=== PATIENT | female | born 1990 | race Caucasian/White ===

== ENCOUNTER 2023-07-10 22:14 | Emergency (ER) | payer OTHER, SELFPAY ==
[2023-07-10 22:23] VITALS: BP 153/83; PULSE 109; RESP 18; TEMP 36.6; O2SAT 100; BMI 33.7
--- NOTE | 2023-07-10 22:36 | XR_ITS ---
The [address] [address] Patient Name: GEO GARCIA MRN: [id number] date: 1990 Sex: F Assigned Patient Location: ER Current Patient Location: ED.MAIN Accession/Order Number: [id number] Exam Date: 07/10/2023 22:48 Report Date: 07/10/2023 23:41 At the request of: DENISE PINEDA Procedure: XR foot LT min 3V EXAM: XR foot LT min 3V HISTORY: foot pain COMPARISON: None. TECHNIQUE: 3 views of the left foot were obtained. FINDINGS: There is a nondisplaced transverse fracture through the proximal left fifth metatarsal diametaphysis. The joint spaces are preserved. There is no significant left ankle joint effusion. XR/XR foot LT min 3V IMPRESSION: 1. Proximal left fifth metatarsal fracture as described. Electronically authenticated by: Lui ESPINOSA Date: 07/10/2023 23:41
--- NOTE | 2023-07-10 22:36 | ED_ITS ---
HPI - Extremity Injury (Lower) General Chief Complaint: Extremity Injury, Lower Stated Complaint: LE INJURY Time Seen by Provider: 07/10/23 22:24 Source: patient Mode of arrival: walk-in Limitations: no limitations History of Present Illness HPI Narrative: Patient states that last night, while in bed, she went to move and felt a sharp pain and pop along the 5th metatarsal of the left foot. She got up today and h ad increased pain. Said that she cannot bear weight on the left foot. Took 600mg Motrin today Related Data Previous Rx's Medication Instructions Recorded oxycodone-acetaminophen 5 mg-325 1 tab PO Q6H PRN pain 4 days #14 07/10/23 mg tablet (Percocet) tabs Allergies Allergy/AdvReac Type Severity Reaction Status Date / Time No Known Drug Allergies Allergy Verified 07/10/23 22:28 Exam Narrative Exam Narrative: Nurses notes and vital signs reviewed and patient is not hypoxic. Afebrile General: Well-appearing and in no apparent distress. Skin: Warm, dry, no pallor noted. No rash. Cardiovascular: Normal peripheral perfusion. Respiratory: No accessory muscle use or respiratory distress. Musculoskeletal: Left lower extremity - toes of the left t foot, right ankle, right knee with normal ROM, no calf or popliteal tenderness, no lower extremity edema/swelling. Focal tenderness along the left fifth metatarsal without ecchymosis or swelling Neurological: A&O x4. No cranial nerve dysfunction observed. No truncal ataxia. Moves all extremities. Sensation intact. Psychiatric: Cooperative and interactive. Normal mood and affect. Constitutional Vital Signs, click to edit/add: Last Vital Signs Temp 97.8 F 07/10/23 22:23 Pulse 109 H 07/10/23 22:23 Resp 18 07/10/23 22:23 BP 153/83 H 07/10/23 22:23 Pulse Ox 100 07/10/23 22:23 O2 Del Method Room Air 07/10/23 22:23 Course Vital Signs Vital signs: Vital Signs Temperature 97.8 F 07/10/23 22:23 Pulse Rate 109 H 07/10/23 22:23 Respiratory Rate 18 07/10/23 22:23 Blood Pressure 153/83 H 07/10/23 22:23 Pulse Oximetry 100 07/10/23 22:23 Oxygen Delivery Method Room Air 07/10/23 22:23 Temperature 97.8 F 07/10/23 22:23 Pulse Rate 109 H 07/10/23 22:23 Respiratory Rate 18 07/10/23 22:23 Blood Pressure 153/83 H 07/10/23 22:23 Pulse Oximetry 100 07/10/23 22:23 Oxygen Delivery Method Room Air 07/10/23 22:23 MDM - Extremity Injury (Lower) MDM Narrative Medical decision making narrative: Patient sent for x-rays of the left foot. XRay reveals distal shaft fracture of the 5th metatarsal. No other fractures identified. Patient informed of result and ED nurse applied a CAM boot to the left foot.. Patient given crutches for support and instructed on use. She was referred to Dr Topete for follow up. She was given Percocet for pain in the ED and prescribed the same for home use. OARRS reviewed. Discharge Plan Discharge Stand Alone Forms: Portal Instructions Chief Complaint: Extremity Injury, Lower Clinical Impression: Closed fracture of base of fifth metatarsal bone of left foot Patient Disposition: Home, Self-Care Time of Disposition Decision: 23:02 Prescriptions / Home Meds: New oxycodone-acetaminophen [Percocet] 5-325 mg tablet 1 tab PO Q6H PRN (Reason: pain) 4 Days Qty: 14 0RF Rx Instructions: ICD 10 = S 99 Instructions: Foot Fracture in Adults (ED) Referrals: Jeffery Topete DPM [Physician] - As soon as possible
[2023-07-10] MEDS: OXYCODONE HCL/ACETAMINOPHEN 5MG/325MG 1 TAB PO (23:23)
[2023-07-10 23:42] VITALS: BP 140/80; PULSE 88; RESP 16; O2SAT 98
== END 2023-07-10 23:42 | disposition home or self-care (01) ==
PROVIDERS: Emergency Provider Emergency Medicine
DX: S92.352A Displaced fracture of fifth metatarsal bone, left foot, initial encounter for closed fracture (principal); X50.9XXA Other and unspecified overexertion or strenuous movements or postures, initial encounter
CPT/HCPCS: 73630; 99283

== ENCOUNTER 2023-08-09 14:57 | Outpatient (OUT) | payer OTHER, SELFPAY ==
--- NOTE | 2023-08-09 | XR_ITS ---
The [address] [address] Patient Name: GEO GARCIA MRN: [id number] date: 1990 Sex: F Assigned Patient Location: Current Patient Location: [facility] Accession/Order Number: [id number] Exam Date: 08/09/2023 15:00 Report Date: 08/10/2023 08:50 At the request of: CRISS URIBE Procedure: XR foot LT min 3V PROCEDURE: XR foot LT min 3V COMPARISON: 07/10/2023 HISTORY: LEFT FOOT PAIN FINDINGS: BONES:Stable transverse extra articular fracture base of fifth metatarsal with interval increase in both lytic and sclerotic change. Incomplete bony bridging. No new fracture or dislocation. SOFT TISSUES:Negative. No visible soft tissue swelling. EFFUSION:None visible. OTHER: Negative. XR/XR foot LT min 3V IMPRESSION: Stable healing extra-articular fracture base of the fifth metatarsal Electronically authenticated by: MING SOUSA Date: 08/10/2023 08:50
== END 2023-08-09 14:58 | disposition home or self-care (01) ==
LOC: EC 14:57
PROVIDERS: Visit Provider Podiatrist Foot & Ankle Surgery
DX: M79.672 Pain in left foot (principal)
CPT/HCPCS: 73630

== ENCOUNTER 2023-08-09 15:56 | Outpatient (OUT) | payer OTHER, SELFPAY ==
--- NOTE | 2023-08-09 16:03 | US_ITS ---
The [address] [address] Patient Name: GEO GARCIA MRN: [id number] date: 1990 Sex: F Assigned Patient Location: [place] Current Patient Location: Accession/Order Number: [id number] Exam Date: 08/09/2023 16:06 Report Date: 08/09/2023 21:12 At the request of: CRISS URIBE Procedure: US venous doppler LE LT EXAM: ULTRASOUND OF THE LOWER EXTREMITY VENOUS LEFT HISTORY: Extremity edema and pain. Leg swelling R22.42 COMPARISON: None. TECHNIQUE: Multiple sonographic images are performed of the extremity venous system with both color Doppler and grayscale Doppler. Doppler spectral analysis and color flow were performed of the extremity. FINDINGS: Positive DVT in the posterior tibial vein and peroneal veins on the left. No popliteal fluid collection. US/US venous doppler LE LT IMPRESSION: Positive for DVT left lower extremity. Critical results were NOTIFIED by TELEPHONE ot doctor electronic data interchange specialist and patient was sent to the ER 08/09/2023 9:04 PM EDT. Electronically authenticated by: VAUGHN GILLILAND Date: 08/09/2023 21:12
== END 2023-08-09 15:57 | disposition home or self-care (01) ==
LOC: US 15:58
PROVIDERS: Visit Provider Podiatrist Foot & Ankle Surgery
DX: R22.42 Localized swelling, mass and lump, left lower limb (principal); I82.442 Acute embolism and thrombosis of left tibial vein; I82.452 Acute embolism and thrombosis of left peroneal vein
CPT/HCPCS: 93971

== ENCOUNTER 2023-08-09 17:01 | Emergency (ER) | payer OTHER, SELFPAY ==
[2023-08-09 17:06] VITALS: BP 155/92; PULSE 93; TEMP 36.7; O2SAT 97; BMI 33.7
--- OUTSIDE RECORDS SUMMARY | 2023-08-09 17:06 | XMS_ITS | CCD ---
Author Organization [facility] Care Team Providers Care Assembly Line Upholsterer Name Role Phone JULIANAK, GOVIND Unavailable Unavailable KARASIK, GOVIND Unavailable Unavailable REQUEST, NONE LISTED Unavailable Unavailable KARASIK, GOVIND Unavailable Unavailable RODY, LINH Unavailable Unavailable ZIEBERSAMI R Unavailable Unavailable KARASIK, GOVIND Unavailable Unavailable KARASIK, GOVIND Unavailable Unavailable KARASIK, GOVIND Unavailable Unavailable KARASIK, GOVIND Unavailable Unavailable KARASIK, GOVIND Unavailable Unavailable KARASIK, GOVIND Unavailable Unavailable KARASIK, GOVIND Unavailable Unavailable KARASIK, GOVIND Unavailable Unavailable KARASIK, GOVIND Unavailable Unavailable MARTE, THONG Unavailable Unavailable RODY, LINH Unavailable Unavailable MARTE, THONG Unavailable Unavailable KARASIK, GOVIND Unavailable Unavailable KARASIK, GOVIND Unavailable Unavailable KARASIK, GOVIND Unavailable Unavailable KARASIK, GOVIND Unavailable Unavailable KARASIK, GOVIND Unavailable Unavailable REQUEST, NONE LISTED Unavailable Unavailable KARASIK, GOVIND Unavailable Unavailable KARASIK, GOVIND Unavailable Unavailable KARASIK, GOVIND Unavailable Unavailable REQUEST, NONE LISTED Unavailable Unavailable KARASIK, GOVIND Unavailable Unavailable MAGDIEL LOMAX S Unavailable Unavailable NITZMING CONNOR Unavailable Unavailable GENIA LUCAS Unavailable Unavailable SEAMON, MAKENNA A Unavailable Unavailable REQUEST, NONE LISTED Unavailable Unavailable HAY, DENISE Unavailable Unavailable HAY, DENISE Unavailable Unavailable WEST, MING Ness Unavailable Unavailable GRECHNY, YOLANDE Unavailable Unavailable KARASIK, GOVIND Unavailable Unavailable KARASIK, GOVIND Unavailable Unavailable KARASIK, GOVIND Unavailable Unavailable Problems Active Problems Problem Classification Problem Date Documented Da te Episodic/Chronic Other complications of ; puerperium affecting management of mother (1 source) Anemia complicating childbirth; Translations: [ANEMIA COMPLICATING CHILDBIRTH] Onset: 01-26-2017 Chronic Other nervous system disorders (3 sources) Paresthesia of skin; Translations: [PARESTHESIA OF SKIN] Onset: 08-20-2017 Episodic Spondylosis; intervertebral disc disorders; other back problems (1 source) Cervicalgia; Translations: [CERVICALGIA] Onset: 08-23-2017 Episodic Substance-related disorders (1 source) Nicotine dependence, cigarettes, uncomplicated; Translations: [NICOTINE DEPEND CIGARETTES UNCOMP] Onset: 08-23-2017 Chronic Unclassified (1 source) 40 weeks gestation of ; Translations: [40 WEEKS GESTATION OF ] Onset: 01-26-2017 Unclassified (1 source) Carpal tunnel syndrome, bilateral upper limbs; Translations: [CARPAL TUNNEL SYND SARAVANAN UPPER LIMBS] Onset: 08-23-2017 Past or Other Problems Problem Classification Problem Date Documented Date Episodic/Chronic Contraceptive and procreative management (5 sources) Encounter for sterilization; Translations: [ENCOUNTER FOR STERILIZATION] Onset: 07-01-2017 Episodic Immunizations and screening for infectious disease (4 sources) Encounter for screening for infections with a predominantly sexual mode of transmission; Translations: [ENC SCREEN INFECTIONS SEXL TRANSMS] Onset: 12-15-2016 Episodic Medical examination/evaluatio n (4 sources) Encounter for other preprocedural examination; Translations: [ENCOUNTER OTHER PREPROCEDURAL EXAM] Onset: 06-29-2017 Episodic Normal and/or delivery (7 sources) Encounter for supervision of other normal , third trimester; Translations: [Encounter for supervision of normal , unspecified, third trimester] Onset: 12-08-2016 Episodic Other complications of (4 sources) Supervision of with insufficient care, second trimester; Translations: [SUP PG INSUFF ANTENATL CARE 2ND TRI] Onset: 11-19-2016 Episodic Prolonged (1 source) Post-term ; Translations: [POST-TERM ] Onset: 01-26-2017 Episodic Unclassified (5 sources) Encounter for screening for malignant neoplasm of cervix; Translations: [Encounter for screening of mother] Onset: 12-13-2016 Episodic Results Test Name Value Interpretation Reference Range Facility PAP RFX HPV IF ASCon 018 DIAGNOSIS: Comment Abnormal [facility] Comment on above: Result Comment: EPIT HELIAL CELL ABNORMALITY.LOW-GRADE SQUAMOUS INTRAEPITHELIAL LESION (LGSIL); MILD DYSPLASIA ISPRESENT.FUNGAL ORGANISMS MORPHOLOGICALLY CONSISTENT WITH DAISY SPECIES AREPRESENT. Performed By: #### C BC ####[facility] [address] [place] [address] Amna Electronically signed by: Comment Normal [facility] Comment on above: Result Comment: Kelsie Marin MD, Pathologist Performed By: #### C BC ####[facility] [address] [place] [address] Amna Methodology: Comment Normal [facility] Comment on above: Result Comment: This liquid based SurePath(R) pap test was screened with theassistance of an image guided system. Performed By: #### C BC ####[facility] [address] [place] [address] Amna Note: Comment Normal [facility] Comment on above: Result Comment: The Pap smear is a screening test designed to aid in the detection ofpremalignant and malignant conditions of the uterine cervix. It is not adiagnostic procedure and should not be used as the sole means of detectingcervical cancer. Both false-positive and false-negative reports do occur. . Performed By: #### C BC ####[facility] [address] [place] [address] Amna Performed by: Comment Normal [facility] Comment on above: Result Comment: Aicha Acosta, Juice Standardizer (ASCP) Performed By: #### C BC ####[facility] Fzn[address] [place] [address] Amna Protein Comment Normal [facility] Comment on above: Result Comment: R87. 612, R87.5 Performed By: #### C BC ####[facility] [address] [place] [address] Amna Reflex Criteria: Comment Normal [facility] Comment on above: Result Comment: The HPV DNA reflex criteria were not met with this specimen resulttherefore, no HPV testing was performed. . Performed By: #### C BC ####[facility] [address] [place] [address] Amna Specimen adequacy: Comment Normal [facility] Comment on above: Result Comment: Sati sfactory for evaluation. Endocervical and/or squamous metaplasticcells (endocervical component) are present. Performed By: #### C BC ####[facility] [address] [place], [place] [address]Dhnxjo Amna . . Normal [facility] Comment on above: Performed By: #### C BC ####[facility] [address] [place], [place] [address] C-SPINE WO CONon 08-21-[address] C-SPINE WO CON [address] [place] [address] Patient: GEO GARCIA Exam Date: 08/20/2017DOB: 1990 Gender:F : CARITO ARZATE Admission #: [id number] : DR DENISE PINEDA . Order #: [id number] HERE TO VIEW EXAM RADIOLOGY REPORT PROCEDURE: CT C-SPINE WITHOUT CONTRAST COMPARISON: None. INDICATIONS: Acute distal cervical pain, bilateral hand pain and numbness TECHNIQUE: Axial, Coronal, and Sagittal images were created without IV contrast. DOSE: 249 mGycm FINDINGS: VERTEBRAL BODIES: No fracture, spondylolisthesis, or osseous lesion. FACET JOINTS: No disruption or abnormal widening.CERVICAL DISCS: No significant disc abnormality or foraminal stenosis. CENTRAL CANAL: No spinal stenosis or evidence of hemorrhage.PARASPINAL AREA: No visible mass. CONCLUSION: 1. No acute abnormality Dictated by: Ming Acosta M.D. on 08/20/2017 at 16:17 Approved by: Ming Acosta M.D. on 08/20/2017 at 16:20 Normal [facility] PREG HCG QUALon 07-04-2017 , QUAL Negative Normal NEGATIVE [facility] Comment on above: Performed By: #### C BC ####[facility] [address] [place], [place] [address]Pxnxpa Amna PAP ACOG PANEL 2: 21 to 29on 06-01-2017 Age Gdln ACOG Testing 21-29 Normal [facility] Comment on above: Performed By: #### C BC ####[facility] [address] [place], [place] [address]Stvizl Amna COMMENT Comment Normal [facility] Comment on above: Result Comment: Z01. 419 Performed By: #### C BC ####[facility] Uwtwn[address] [place] DIAGNOSIS: Comment Abnormal [facility] Comment on above: Result Comment: EPIT HELIAL CELL ABNORMALITY.LOW-GRADE SQUAMOUS INTRAEPITHELIAL LESION (LGSIL); MILD DYSPLASIA ISPRESENT. Performed By: #### C BC ####[facility] [address] [place] [address] Amna Electronically signed by: Comment Normal [facility] Comment on above: Result Comment: Kelsie Marin MD, Pathologist Performed By: #### C BC ####[facility] [address] [place] [address] Amna Methodology: Comment Normal [facility] Comment on above: Result Comment: This liquid based SurePath(R) pap test was screened with theassistance of an image guided system. Performed By: #### C BC ####[facility] [address] [place] [address] Amna Note: Comment Normal [facility] Comment on above: Result Comment: The Pap smear is a screening test designed to aid in the detection ofpremalignant and malignant conditions of the uterine cervix. It is not adiagnostic procedure and should not be used as the sole means of detectingcervical cancer. Both false-positive and false-negative reports do occur. . Performed By: #### C BC ####[facility] [address] [place] [address] Amna Performed by: Comment Normal [facility] Comment on above: Result Comment: Haley Bettencourt, Juice Standardizer (ASCP) Performed By: #### C BC ####[facility] [address] [place] [address] Amna Protein Comment Normal [facility] Comment on above: Result Comment: R87. 612 Performed By: #### C BC ####[facility] [address] [place] [address] Amna Reflex Criteria: Comment Normal [facility] Comment on above: Result Comment: The HPV DNA reflex criteria were not met with this specimen resulttherefore, no HPV testing was performed. . Performed By: #### C BC ####[facility] [address] [place] [address] Amna Specimen adequacy: Comment Normal [facility] Comment on above: Result Comment: Sati sfactory for evaluation. Endocervical and/or squamous metaplasticcells (endocervical component) are present. Performed By: #### C BC ####[facility] [address] [place] [address] Amna . . Normal [facility] Comment on above: Performed By: #### C BC ####[facility] [address] [place] [address] Amna CBC AUTO DIFFon 01-14-2017 Basophils Auto #/vol (Bld) 0.0 103/ul Normal 0.0-0.1 [facility] Comment on above: Performed By: #### C BC ####[facility] [address] [place] [address] Amna Basophils/100 WBC Auto (Bld) 0.2 % Normal 0.2-2.0 [facility] Comment on above: Performed By: #### C BC ####[facility] [address] [place] [address] Anma Eosinophils 0.3 103/ul Normal 0.0-0.7 [facility] Comment on above: Performed By: #### C BC ####[facility] [address] [place] [address] Amna Eosinophils/100 leukocytes 3.5 % Normal 0.9-7.0 [facility] Comment on above: Performed By: #### C BC ####[facility] [address] [place] [address] Amna Erythrocyte distribution width Auto Ratio (RBC) 13.5 % Normal 11.0-15.0 [facility] Comment on above: Performed By: #### C BC ####[facility] [address] [place] [address] Amna Erythrocytes (RBC) 3.12 106/ul Critically low 4.20-5.40 [facility] Comment on above: Performed By: #### C BC ####[facility] Wjnbclfpbt[address] [place] Hematocrit (HCT) 27.8 % Critically low 36.0-48.0 [facility] Comment on above: Performed By: #### C BC ####[facility] Ffqbknsrls2137 [address] Am[place] Hemoglobin mass conc (Bld) 8.9 g/dL Critically low 12.0-16.0 [facility] Comment on above: Performed By: #### C BC ####[facility] [address] [place] [address] Amna IG # 0.04 10e3/ul Critically high 0.00-0.03 [facility] Comment on above: Performed By: #### C BC ####[facility] [address] [place] [address] Amna IG % 0.5 % Normal 0.0-0.5 [facility] Comment on above: Performed By: #### C BC ####[facility] [address] [place] [address] Amna Lymphocytes 2.2 103/ul Normal 1.2-3.8 [facility] Comment on above: Performed By: #### C BC ####[facility] [address] [place] [address] Amna Lymphocytes/100 leukocytes 26.4 % Normal 20.5-60.0 [facility] Comment on above: Performed By: #### C BC ####[facility] Qialfvunzr7689 [address] [place] MANUAL DIFF REQ NO Normal [facility] Comment on above: Result Comment: NO Performed By: #### C BC ####[facility] Ueetferzim[address] Am[place] MCH 28.5 pg Normal 26.7-34.0 [facility] Comment on above: Performed By: #### C BC ####[facility] [address] [place], [place] [address]Cyasyn Karen MCHC mass conc (RBC) 32.0 g/dL Normal 29.9-35.2 [facility] Comment on above: Performed By: #### C BC ####[facility] [address] [place], [place] [address]Tnsbki Amna MCV 89.1 fL Normal 81.0-99.0 [facility] Comment on above: Performed By: #### C BC ####[facility] [address] [place] [address]Bymauj Amna Monocytes 0.7 103/ul Normal 0.3-0.8 [facility] Comment on above: Performed By: #### C BC ####[facility] [address] [place], [place] [address]Gerken Amna Monocytes/100 leukocytes 8.5 % Normal 1.7-12.0 [facility] Comment on above: Performed By: #### C BC ####[facility] [address]si[address] [place], [place] [address]Gerken Amna Neutrophils 5.1 103/ul Normal 1.4-6.5 [facility] Comment on above: Performed By: #### C BC ####[facility] [address]qf[address] [place], [place] [address]Gerken Amna Neutrophils/100 WBC Auto (Bld) 60.9 % Normal 43.0-75.0 [facility] Comment on above: Performed By: #### C BC ####[facility] [address] [place] [address]Kwmoui Amna Platelet mean volume (PMV) 10.0 fL Normal 9.5-13.5 [facility] Comment on above: Performed By: #### C BC ####[facility] [address] [place] [address]Edtpub Amna Platelets 142 103/ul Critically low 150-450 [facility] Comment on above: Performed By: #### C BC ####[facility] [address]j1578 [place], [place] [address]Qaxuwp Amna WBC (Leukocytes) 8.3 103/ul Normal 4.0-11.0 [facility] Comment on above: Performed By: #### C BC ####[facility] [address]nd[address]vx[address] [place], [place] [address]Gerken Amna CBC AUTO DIFFon 01-13-2017 Basophils Auto #/vol (Bld) 0.0 103/ul Normal 0.0-0.1 [facility] Comment on above: Performed By: #### C BC ####[facility] [address] [place], [place] [address]Gerken Amna Basophils/100 WBC Auto (Bld) 0.3 % Normal 0.2-2.0 [facility] Comment on above: Performed By: #### C BC ####[facility] [address]bq[address] [place], [place] [address]Gerken Amna Eosinophils 0.3 103/ul Normal 0.0-0.7 [facility] Comment on above: Performed By: #### C BC ####[facility] [address]fcrviolrr[address] [place], [place] [address]Gerrobert Woo Eosinophils/100 leukocytes 3.3 % Normal 0.9-7.0 [facility] Comment on above: Performed By: #### C BC ####[facility] [address] [place] [address] Amna Erythrocyte distribution width Auto Ratio (RBC) 13.3 % Normal 11.0-15.0 [facility] Comment on above: Performed By: #### C BC ####[facility] Jks[address]zovoj[address] [place], [place] [address]Gerrobert Woo Erythrocytes (RBC) 3.49 106/ul Critically low 4.20-5.40 [facility] Comment on above: Performed By: #### C BC ####[facility] Q[address]qdjskud[address] [place], [place] [address]Gerrobert Woo Hematocrit (HCT) 30.7 % Critically low 36.0-48.0 [facility] Comment on above: Performed By: #### C BC ####[facility] [address]utf[address] [place], [place] [address]Gerrobert Woo Hemoglobin mass conc (Bld) 10.1 g/dL Critically low 12.0-16.0 [facility] Comment on above: Performed By: #### C BC ####[facility] [address] [place] [address] Amna IG # 0.02 10e3/ul Normal 0.00-0.03 [facility] Comment on above: Performed By: #### C BC ####[facility] [address] [place] [address] Amna IG % 0.3 % Normal 0.0-0.5 [facility] Comment on above: Performed By: #### C BC ####[facility] [address] [place] [address] Amna Lymphocytes 2.1 103/ul Normal 1.2-3.8 [facility] Comment on above: Performed By: #### C BC ####[facility] [address] [place], [place] [address]en Lymphocytes/100 leukocytes 25.8 % Normal 20.5-60.0 [facility] Comment on above: Performed By: #### C BC ####[facility] [address] [place] [address] Amna MANUAL DIFF REQ NO Normal [facility] Comment on above: Result Comment: NO Performed By: #### C BC ####[facility] [address] [place] [address] Amna MCH 28.9 pg Normal 26.7-34.0 [facility] Comment on above: Performed By: #### C BC ####[facility] [address] [place] [address] Amna MCHC mass conc (RBC) 32.9 g/dL Normal 29.9-35.2 [facility] Comment on above: Performed By: #### C BC ####[facility] [address]qvy[address] [place] [address] Amna MCV 88.0 fL Normal 81.0-99.0 [facility] Comment on above: Performed By: #### C BC ####[facility] [address] [place], [place] [address]Snrvlj Amna Monocytes 0.7 103/ul Normal 0.3-0.8 [facility] Comment on above: Performed By: #### C BC ####[facility] [address] [place], [place] [address]Acxrsk Amna Monocytes/100 leukocytes 8.9 % Normal 1.7-12.0 [facility] Comment on above: Performed By: #### C BC ####[facility] X[address]h5761 [place], [place] [address]Iefbve Amna Neutrophils 4.9 103/ul Normal 1.4-6.5 [facility] Comment on above: Performed By: #### C BC ####[facility] [address] [place] [address]Iscnkp Amna Neutrophils/100 WBC Auto (Bld) 61.4 % Normal 43.0-75.0 [facility] Comment on above: Performed By: #### C BC ####[facility] [address] [place] [address]Wgefyd Amna Platelet mean volume (PMV) 10.3 fL Normal 9.5-13.5 [facility] Comment on above: Performed By: #### C BC ####[facility] R[address] [place] [address]Xlxmat Amna Platelets 205 103/ul Normal 150-450 [facility] Comment on above: Performed By: #### C BC ####[facility] Xfevbhbxfs6185 [place], [place] [address]Iywiin Amna WBC (Leukocytes) 8.0 103/ul Normal 4.0-11.0 [facility] Comment on above: Performed By: #### C BC ####[facility] W[address]ouznj9110 [place], [place] [address]Rcwiyy Amna DRUG SCRN UR RAPIDon 017 BARBITURATES Negative Normal NEGATIVE [facility] Comment on above: Result Comment: NEGA TIVE Performed By: #### C BC ####[facility] Uxlswxiidl4[address] Am[place] PCP Negative Normal NEGATIVE [facility] Comment on above: Result Comment: NEGA TIVE Performed By: #### C BC ####[facility] Yleebhjfdm[address]54 [address] Am[place] THC Negative Normal NEGATIVE [facility] Comment on above: Result Comment: NEGA TIVE Performed By: #### C BC ####[facility] Gufclennpg9081 [address] [place] THRESH CONC 25 THRESHOLD CONCENTRATION IS 25 ng/mL. Normal [facility] Comment on above: Result Comment: THRE SHOLD CONCENTRATION IS 25 ng/mL. Performed By: #### C BC ####[facility] [address] [place] [address] Amna THRESHOLD CONC 1000 THRESHOLD CONCENTRATION IS 1000 ng/mL. Normal [facility] Comment on above: Result Comment: THRE SHOLD CONCENTRATION IS 1000 ng/mL. Performed By: #### C BC ####[facility] [address] [place] [address] Amna THRESHOLD CONC 200 THRESHOLD CONCENTRATION IS 200 ng/mL. Normal [facility] Comment on above: Result Comment: THRE SHOLD CONCENTRATION IS 200 ng/mL. Performed By: #### C BC ####[facility] [address] [place] [address] Amna THRESHOLD CONC 300 THRESHOLD CONCENTRATION IS 300 ng/mL. Normal [facility] Comment on above: Result Comment: THRE SHOLD CONCENTRATION IS 300 ng/mL. Performed By: #### C BC ####[facility] [address] [place] [address] Amna THRESHOLD CONC 50 THRESHOLD CONCENTRATION IS 50 ng/mL. Normal [facility] Comment on above: Result Comment: THRE SHOLD CONCENTRATION IS 50 ng/mL. Performed By: #### C BC ####[facility] Ikgoolthkg8381 [address] [place] Urine, amphetamines presence Negative Normal NEGATIVE [facility] Comment on above: Result Comment: NEGA TIVE Performed By: #### C BC ####[facility] [address]fpok43[address] [place], [place] [address]Evhogh Amna Urine, benzodiazepines presence Negative Normal NEGATIVE [facility] Comment on above: Result Comment: NEGA TIVE Performed By: #### C BC ####[facility] M[address]wttwepx9735 [place], [place] [address]Yrqcyb Amna Urine, cocaine presence Negative Normal NEGATIVE [facility] Comment on above: Result Comment: NEGA TIVE Performed By: #### C BC ####[facility] [address] [place] [address]Gerken Amna Urine, methadone presence Negative Normal NEGATIVE [facility] Comment on above: Result Comment: NEGA TIVE Performed By: #### C BC ####[facility] [address] [place], [place] [address]Gerken Amna Urine, opiates presence Negative Normal NEGATIVE [facility] Comment on above: Result Comment: NEGA TIVE Performed By: #### C BC ####[facility] [address] [place] [address] Amna CHLAMYDIA AND GC AMPLIFon Chlamydia Amplif Negative Normal [facility] Comment on above: Result Comment: Test Performed By: [facility] [employer] [address] [place] [address] Legal Secretary Receptionist: Chantel Santiago MD, PhD Performed By: #### C BC ####[facility] [address] [place], [place] [address] Amna GC Amplification Negative Normal [facility] Comment on above: Performed By: #### C BC ####[facility] [address] [place], [place] [address]Gerken Amna GC/Chlam Amp Source VAGINAL Normal [facility] Comment on above: Performed By: #### C BC ####[facility] [address] [place], [place] [address]ken Amna RPR/SERUMon 12-09-2016 Reagin antibody presence Non Reactive Normal NR [facility] Comment on above: Result Comment: Test Performed By: [facility] [employer] [address] [place] [address] Legal Secretary Receptionist: Chantel Santiago MD, PhD Performed By: #### R UT ####[facility] [address] [place] [address]Salud Woo CBC AUTO DIFFon 12-08-2016 Basophils Auto #/vol (Bld) 0.0 103/ul Normal 0.0-0.1 [facility] Comment on above: Performed By: #### C BC ####[facility] [address] [place] [address] Amna Basophils/100 WBC Auto (Bld) 0.3 % Normal 0.2-2.0 [facility] Comment on above: Performed By: #### C BC ####[facility] [address] [place] [address] Am[place] Eosinophils 0.2 103/ul Normal 0.0-0.7 [facility] Comment on above: Performed By: #### C BC ####[facility] [address] [place] [address] Am[place] Eosinophils/100 leukocytes 2.9 % Normal 0.9-7.0 [facility] Comment on above: Performed By: #### C BC ####[facility] [address] [place] [address] Am[place] Erythrocyte distribution width Auto Ratio (RBC) 12.7 % Normal 11.0-15.0 [facility] Comment on above: Performed By: #### C BC ####[facility] [address] [place] [address] Amna Erythrocytes (RBC) 3.44 106/ul Critically low 4.20-5.40 [facility] Comment on above: Performed By: #### C BC ####[facility] [address] [place] [address] Amna Hematocrit (HCT) 31.2 % Critically low 36.0-48.0 [facility] Comment on above: Performed By: #### C BC ####[facility] [address] [place] [address] Amna Hemoglobin mass conc (Bld) 10.5 g/dL Critically low 12.0-16.0 [facility] Comment on above: Performed By: #### C BC ####[facility] Exuzyfuxfj[address] Am[place] IG # 0.03 10e3/ul Normal 0.00-0.03 [facility] Comment on above: Performed By: #### C BC ####[facility] Uzsmughakr[address] Am[place] IG % 0.4 % Normal 0.0-0.5 [facility] Comment on above: Performed By: #### C BC ####[facility] Rnophmrchg6474 [address] Am[place] Lymphocytes 1.7 103/ul Normal 1.2-3.8 [facility] Comment on above: Performed By: #### C BC ####[facility] [address] [place] [address] Amna Lymphocytes/100 leukocytes 22.8 % Normal 20.5-60.0 [facility] Comment on above: Performed By: #### C BC ####[facility] [address] [place] [address] Amna MANUAL DIFF REQ NO Normal [facility] Comment on above: Performed By: #### C BC ####[facility] [address] [place] [address] Amna MCH 30.5 pg Normal 26.7-34.0 [facility] Comment on above: Performed By: #### C BC ####[facility] Hfcnavzbut3523 [address] Am[place] MCHC mass conc (RBC) 33.7 g/dL Normal 29.9-35.2 [facility] Comment on above: Performed By: #### C BC ####[facility] [address] [place] [address] Amna MCV 90.7 fL Normal 81.0-99.0 [facility] Comment on above: Performed By: #### C BC ####[facility] [address] [place] [address] Amna Monocytes 0.6 103/ul Normal 0.3-0.8 [facility] Comment on above: Performed By: #### C BC ####[facility] [address] [place] [id number] Am[place] Monocytes/100 leukocytes 8.7 % Normal 1.7-12.0 [facility] Comment on above: Performed By: #### C BC ####[facility] [address] [place] [id number] Neutrophils 4.7 103/ul Normal 1.4-6.5 [facility] Comment on above: Performed By: #### C BC ####[facility] [address] [place] [address] Am[place] Neutrophils/100 WBC Auto (Bld) 64.9 % Normal 43.0-75.0 [facility] Comment on above: Performed By: #### C BC ####[facility] [address] [place], [place] [address]Salud Woo Platelet mean volume (PMV) 9.1 fL Critically low 9.5-13.5 [facility] Comment on above: Performed By: #### C BC ####[facility] [address] [place] [address] Am[place] Platelets 200 103/ul Normal 150-450 [facility] Comment on above: Performed By: #### C BC ####[facility] [address] [place] [id number] WBC (Leukocytes) 7.3 103/ul Normal 4.0-11.0 [facility] Comment on above: Performed By: #### C BC ####[facility] [address] [place], [place] [address]Yuygni Karen CULTURE URINEon 12-08-2016 CULTURE URINE Culture Observations : Final, scanned result to follow in HPF Normal [facility] Comment on above: Performed By: #### C XUR ####[facility] [address] [place] [phone] GLYCOHEMOGLOBIN A1Con 2016 Glucose mass conc 91 mg/dL Normal [facility] Comment on above: Performed By: #### A 1C ####[facility] Jy[address]ul[address] Hemoglobin A1c/Hemoglobin.total mass fraction (Bld) 4.8 % Normal <=6.0 [facility] Comment on above: Performed By: #### A 1C ####[facility] Dsvyaacjdr[address] GROUP B STREPTon 12-08-2016 GBS Performed by [facility] , final report to follow Normal NEG FOR GBS [facility] Comment on above: Performed By: #### C BC ####[facility] [address] [place] [address] HEP B SURFACE AGon 7 HEP B Surface Ag Negative Normal NEGATIVE [facility] Comment on above: Performed By: #### H BSAG2, HCV2 ####[facility] Wszmedydnk[address] HEP C ANTIBODYon 12-08-2016 Anti HCV Negative Normal NEGATIVE [facility] Comment on above: Performed By: #### H BSAG2, HCV2 ####[facility] [address] [place] [address] HIV 1 AND 2 ABon 12-08-2016 HIV 1 AND 2 AB Negative Normal NEGATIVE [facility] Comment on above: Performed By: #### H IV12 ####[facility] Wpamgefofe[address] RUBELLA AB IGGon 12-08-2016 RUB HEADER SEE BELOW Normal [facility] Comment on above: Result Comment: or=1 5.0 IU/mL POSITIVE WHO considers levels >or= 10.0 IU/mL to be positive immune status Performed By: #### R UBG ####[facility] V[address] RUB IGG 67.0 IU/mL Normal [facility] Comment on above: Performed By: #### R UBG ####[facility] [address] [place], [place] [address]Aqwdug Amna TYPE AND SCREENon 12-08-2016 TYPE AND SCREEN Negative Normal [facility] Comment on above: Performed By: #### T NS ####[facility] [address] [place], [place] [address]Homykl Amna US PREG ANATOMY SINGLEon US PREG ANATOMY SINGLE [address] [place] [address] Patient: GEO GARCIA Exam Date: 11/19/2016DOB: 1990 Gender:F : DR LINH FINE Admission #: [id number] : DR GOVIND ODONNELL . Order #: [id number] HERE TO VIEW EXAM RADIOLOGY REPORT PROCEDURE: ULTRASOUND > 14 WEEKS COMPARISON: None. INDICATIONS: Late care affecting O09.32; 33w0d TECHNIQUE: Transabdominal sonographic examination for obstetrical and evaluation. Transvaginal sonographic examination for obstetrical and evaluation.FINDINGS: FLUID / PLACENTA: Amniotic fluid volume: Subjectively normal. Placental location: Posterior. No previa. Cervix Length: 4.1 cm, closed Heart Rate: 153 H.B./min Number: One ANATOMY: Normal structures: Cerebellum. Choroid plexus. Cisterna magna. Lateral cerebral ventricles. Orbits. Midline falx. Hard palate. 4-chamber heart. RVOT. LVOT. Stomach. Kidneys. Bladder. Umbilical cord insertion into abdomen. 3 vessel cord. Cervical spine. Thoracic spine. Lumbar spine. Sacral spine. Right upper extremity. Left upper extremity. Right lower extremity. Left lower extremity. Suboptimally seen: Lateral cerebral ventricles. Abnormalities/Other: None. BIOMETRY: BPD: 7.64 cm 30 weeks, 5 days 3 % FL/AC: 22.94 HC: 28.98 cm 31 weeks, 6 days 3.10 % FL/BPD: 80.34 AC: 26.77 cm 30 weeks, 6 days 5.10 % HC/AC: 1.08 FL: 6.14 cm 31 weeks, 6 days 13.10 % EFW: 1734.04 g 6% by EDC GESTATIONAL AGE: Age by EDC: 33 weeks, 0 days CRISTI by EDC: 2017-01-07 Age by Current US: 31 weeks, 2 days CRISTI by Current US: 2017-01-19 *Reference: [employer] Practice Guideline for the performance of Obstetric Ultrasound Examinations, January 23, 2007. CONCLUSION: 1. Single live intrauterine with growth detailed above.2. Estimated weight places the at the 6th percentile by EDC.3. Lack of visualization of the lateral cerebral ventricles. I suspect these are very thin due to age and increased brain size. Dictated by: Sami Laboy M.D. on 11/19/2016 at 20:49 Approved by: Sami Laboy M.D. on 11/19/2016 at 20:54 Normal [facility] Encounters Encounter Date Encounter Type Care Provider Facility Start: 11-09-2017 End: 11-09-2017 Patient encounter GOVIND ODONNELL Facility: Start: 08-20-2017 End: 08-20-2017 Patient encounter NONE LISTED REQUEST Facility: Start: 07-04-2017 End: 07-04-2017 Patient encounter GOVIND ODONNELL Facility: Start: 06-29-2017 End: 06-30-2017 Patient encounter GOVIND ODONNELL Facility: Start: 05-27-2017 End: 05-27-2017 Patient encounter GOVIND ODONNELL Facility: Start: 01-13-2017 End: 01-15-2017 Evaluation and management of inpatient GOVIND ODONNELL Facility: Start: 12-15-2016 End: 12-15-2016 Patient encounter GOVIND ODONNELL Facility: Start: 12-08-2016 End: 12-09-2016 Patient encounter GOVIND ODONNELL Facility: Start: 11-19-2016 End: 11-20-2016 Patient encounter GOVIND ODONNELL Facility: Procedures Date Procedure Procedure Detail Performing Clinician Start: 01-13-2017 Delivery of Products of Conception, External Approach GOVINDPREMA ODONNELL Start: 01-13-2017 Drainage of Amniotic Fluid, Therapeutic from Products of Conception, Via Natural or Artificial Opening GOVIND ODONNELL Payers Date Payer Category Payer Unknown [id number] Summary Purpose Family History No Family History Records Found Advance Directives No Advanced Directives Records Found Additional Source Comments INFORMATION SOURCE (unrecogn ized section and content) DATE CREATED AUTHOR 11/17/2017 [facility] FOR RECORDS PERTAINING TO PATIENTS WHO ARE OR HAVE BEEN ENROLLED IN A CHEMICAL DEPENDENCY/SUBSTANCEABUSE PROGRAM, SOME INFORMATION MAY BE OMITTED. This clinical summary was aggregated from multiple sources. Caution should be exercised in using it in the provision of clinical care. This summary normalizes information from multiple sources, and as a consequence, information in this document may materially change the coding, format and clinical context of patient data. In addition, data may be omitted in some cases. CLINICAL DECISIONS SHOULD BE BASED ON THE PRIMARY CLINICAL RECORDS. [facility]. provides no warranty or guarantee of the accuracy or completeness of information in this document.
--- NOTE | 2023-08-09 17:21 | ED.EXTPRO1 ---
HPI - Extremity Problem General Chief complaint: Extremity Problem, Nontraumatic Stated complaint: LOWER PAIN LEFT LEG Time Seen by Provider: 08/09/23 17:02 Source: patient Mode of arrival: walk-in Limitations: no limitations History of Present Illness HPI Narrative: Patient is a 33-year-old female referred to the emergency department from outpatient testing where she was found to have a DVT. She was in this emergency department 3 weeks ago for a metatarsal fracture and was placed in a boot. She has been following with podiatry and on evaluation today, was noted to have significantly improved healing of the foot but reported cramping to the left posterior calf. An ultrasound was performed showing a clot in the posterior tibialis and peroneal veins of the left calf. Patient has no other focal medical complaints, no chest pain or shortness of breath. She has not had any redness or drainage. She has been taking ibuprofen for the cramping. She has no history of DVT or PE. No history of abnormal bleeding in the brain, stomach and is not concerned for . Related Data Previous Rx's ?Medication ?Instructions ?Recorded oxycodone-acetaminophen 5 mg-325 1 tab PO Q6H PRN pain 4 days #14 07/10/23 mg tablet (Percocet) tabs apixaban 5 mg tablet (Eliquis) See Rx Instructions .Route 08/09/23 .COMPLEX #74 tabs hydrocodone 5 mg-acetaminophen 325 1 tab PO Q6H PRN pain 3 days #12 08/09/23 mg tablet tabs methocarbamol 750 mg tablet 750 mg PO TID PRN pain #20 tabs 08/09/23 Allergies Allergy/AdvReac Type Severity Reaction Status Date / Time No Known Drug Allergies Allergy Verified 08/09/23 17:06 Review of Systems ROS Constitutional Denies: fever or chills Ears, nose, mouth, and throat Denies: throat pain or nasal congestion Cardiovascular Denies: chest pain Respiratory Denies: shortness of breath or cough Gastrointestinal Denies: nausea or vomiting Musculoskeletal Reports: muscle cramps; Denies: back pain or neck pain Integumentary/Breast Denies: rash Neurological Denies: headache Exam Narrative Exam Narrative: Gen.: Awake, alert, in no distress Head: Normocephalic, atraumatic ENT: Moist mucous membranes Respiratory: No respiratory distress, lungs clear bilaterally Cardio: Regular rate and rhythm Extremities: Moves extremities equally, No swelling or redness noted of the left posterior calf Psych: Normal mood and affect Neuro: No focal neuro deficit Skin: Warm, dry, intact Constitutional Vital Signs, click to edit/add: Last Vital Signs Temp 98.1 F 08/09/23 17:06 Pulse 93 H 08/09/23 17:06 Resp 18 08/09/23 17:06 BP 155/92 H 08/09/23 17:06 Pulse Ox 97 08/09/23 17:06 O2 Del Method Room Air 08/09/23 17:06 Course Vital Signs Vital signs: Vital Signs Temperature 98.1 F 08/09/23 17:06 Pulse Rate 93 H 08/09/23 17:06 Respiratory Rate 18 08/09/23 17:06 Blood Pressure 155/92 H 08/09/23 17:06 Pulse Oximetry 97 08/09/23 17:06 Oxygen Delivery Method Room Air 08/09/23 17:06 Temperature 98.1 F 08/09/23 17:06 Pulse Rate 93 H 08/09/23 17:06 Respiratory Rate 18 08/09/23 17:06 Blood Pressure 155/92 H 08/09/23 17:06 Pulse Oximetry 97 08/09/23 17:06 Oxygen Delivery Method Room Air 08/09/23 17:06 MDM - Extremity (Nontraumatic) MDM Narrative Medical decision making narrative: Labs obtained that are unremarkable. Patient will be started on Eliquis, referred to PCP and vascular services. Elevate and rest the leg. Short course of analgesics and muscle relaxants given for home. She was encouraged to avoid products containing aspirin, ibuprofen and naproxen. Return to the ER if symptoms change or worsen. Medical Records Attestation: I reviewed the patient's medical records. Lab Data Labs: Lab Results 08/09/23 Range/Units 17:24 WBC 7.5 (4.0-11.0) 10^3/uL RBC 3.96 L (4.20-5.40) 10^6/uL Hgb 11.1 L (12.0-16.0) g/dL Hct 35.1 L (36.0-48.0) % MCV 88.6 (81.0-99.0) fL MCH 28.0 (26.7-34.0) pg MCHC 31.6 (29.9-35.2) g/dL RDW 13.6 (11.0-15.0) % Plt Count 313 (150-450) 10^3/uL MPV 8.7 L (9.5-13.5) fL Neut % (Auto) 59.4 (43.0-75.0) % Lymph % (Auto) 26.7 (20.5-60.0) % [place] % (Auto) 8.7 (1.7-12.0) % Eos % (Auto) 4.2 (0.9-7.0) % Baso % (Auto) 0.7 (0.2-2.0) % Neut # (Auto) 4.4 (1.4-6.5) 10^3/uL Lymph # (Auto) 2.0 (1.2-3.8) 10^3/uL [place] # (Auto) 0.7 (0.3-0.8) 10^3/uL Eos # (Auto) 0.3 (0.0-0.7) 10^3/uL Baso # (Auto) 0.1 (0.0-0.1) 10^3/uL Abs Immat Gran (auto) 0.02 (0.00-0.03) 10^3/uL Imm/Tot Granulo (auto) 0.3 (0.0-0.5) % PT 10.3 (9.0-11.6) sec INR 0.97 Sodium 138 (136-145) mmol/L Potassium 3.8 (3.5-5.1) mmol/L Chloride 105 (98-107) mmol/L Carbon Dioxide 23.5 (21.0-32.0) mmol/L Anion Gap 13.3 BUN 9.0 (7.0-18.0) mg/dL Creatinine 0.71 (0.55-1.02) mg/dL Est GFR ( Amer) >60 (>=60) Est GFR (Non-Af Amer) >60 (>=60) BUN/Creatinine Ratio 12.7 Glucose 101 (74-106) mg/dL Calcium 9.1 (8.5-10.1) mg/dL Imaging Data Venous US: Attestation: I have reviewed the pertinent imaging results. Discharge Plan Discharge Stand Alone Forms: Portal Instructions Chief Complaint: Extremity Problem, Nontraumatic Clinical Impression: Deep vein thrombosis of lower extremity Patient Disposition: Home, Self-Care Time of Disposition Decision: 17:48 Condition: Good Prescriptions / Home Meds: New Eliquis 5 mg tablet See Rx Instructions .ROUTE .COMPLEX Qty: 74 0RF Rx Instructions: 10mg PO BID x 7 days, then 5mg BID x 23 days hydrocodone-acetaminophen 5-325 mg tablet 1 tab PO Q6H PRN (Reason: pain) 3 Days Qty: 12 0RF Rx Instructions: DX: I82.482 methocarbamol 750 mg tablet 750 mg PO TID PRN (Reason: pain) Qty: 20 0RF No Action oxycodone-acetaminophen [Percocet] 5-325 mg tablet 1 tab PO Q6H PRN (Reason: pain) 4 Days Qty: 14 0RF Rx Instructions: ICD 10 = S 99 Print Language: Brazilian Instructions: Deep Vein Thrombosis (ED), Blood Thinners (ED) Referrals: Mikey Jones MD [Physician] - 1 week (Vascular doctor) Physician,Non-Staff, [Primary Care Provider] - 1 week
--- NOTE | 2023-08-09 17:25 | PC.NURSE ---
Pt broke L foot 1 month ago -- 3 weeks of L calf pain. Dr ordered outpt US and turned out to be positive for DVT today. Brought over by ultrasound.
[2023-08-09 17:32] LABS: Basophils Absolute Auto 0.1 10^3/uL (0.0-0.1); Basophils Percent Auto 0.7 % (0.2-2.0); Eosinophils Absolute Auto 0.3 10^3/uL (0.0-0.7); Eosinophils Percent Auto 4.2 % (0.9-7.0); Hematocrit 35.1 % (36.0-48.0); Hemoglobin 11.1 g/dL (12.0-16.0); Immature Granulocytes Abs Auto 0.02 10^3/uL (0.00-0.03); Immature Granulocytes Pct Auto 0.3 % (0.0-0.5); Lymphocytes Percent Auto 26.7 % (20.5-60.0); Mean Corpuscular HGB Conc 31.6 g/dL (29.9-35.2); Mean Corpuscular Volume 88.6 fL (81.0-99.0); Mean Platelet Volume 8.7 fL (9.5-13.5); Monocytes Absolute Auto 0.7 10^3/uL (0.3-0.8); Monocytes Percent Auto 8.7 % (1.7-12.0); Neutrophils Absolute Auto 4.4 10^3/uL (1.4-6.5); Neutrophils Percent Auto 59.4 % (43.0-75.0); Platelet Count 313 10^3/uL (150-450); Red Blood Count 3.96 10^6/uL (4.20-5.40); Red Cell Distribution Width 13.6 % (11.0-15.0); White Blood Count 7.5 10^3/uL (4.0-11.0)
[2023-08-09 17:42] LABS: Anion Gap 13.3; BUN Creatinine Ratio 12.7; Calcium 9.1 mg/dL (8.5-10.1); Carbon Dioxide 23.5 mmol/L (21.0-32.0); Chloride 105 mmol/L (98-107); Estimated GFR (African America >60 (>=60); Estimated GFR (Non-African Ame >60 (>=60); Glucose 101 mg/dL (74-106); Potassium 3.8 mmol/L (3.5-5.1); Sodium 138 mmol/L (136-145)
[2023-08-09 17:45] LABS: INR 0.97; Prothrombin Time 10.3 sec (9.0-11.6)
== END 2023-08-09 18:01 | disposition home or self-care (01) ==
PROVIDERS: Physician Assistant; Emergency Provider Emergency Medicine
DX: M79.672 Pain in left foot (principal); R22.42 Localized swelling, mass and lump, left lower limb; I82.442 Acute embolism and thrombosis of left tibial vein; I82.452 Acute embolism and thrombosis of left peroneal vein; S92.352D Displaced fracture of fifth metatarsal bone, left foot, subsequent encounter for fracture with routine healing
CPT/HCPCS: 36415; 73630; 80048; 85025; 85610; 93971; 99283

== ENCOUNTER 2023-09-06 15:30 | Outpatient (OUT) | payer OTHER, SELFPAY ==
--- NOTE | 2023-09-06 | XR_ITS ---
The [address] [address] Patient Name: GEO GARCIA MRN: [id number] date: 1990 Sex: F Assigned Patient Location: Current Patient Location: Accession/Order Number: [id number] Exam Date: 09/06/2023 15:31 Report Date: 09/07/2023 07:10 At the request of: CRISS URIBE Procedure: XR foot LT min 3V PROCEDURE: XR foot LT min 3V COMPARISON: 08/09/2023 HISTORY: LEFT FOOT PAIN FINDINGS: BONES:Continued healing of a stable transverse extra-articular fracture base of fifth metatarsal with incomplete bony bridging. Increase in permeative pattern throughout the bones SOFT TISSUES:Negative. No visible soft tissue swelling. EFFUSION:None visible. OTHER: Negative. XR/XR foot LT min 3V IMPRESSION: Stable healing fifth metatarsal fracture Osteopenia Electronically authenticated by: MING SOUSA Date: 09/07/2023 07:10
== END 2023-09-06 15:31 | disposition home or self-care (01) ==
LOC: EC 15:30
PROVIDERS: Visit Provider Podiatrist Foot & Ankle Surgery
DX: M79.672 Pain in left foot (principal); S92.355D Nondisplaced fracture of fifth metatarsal bone, left foot, subsequent encounter for fracture with routine healing
CPT/HCPCS: 73630

== ENCOUNTER 2023-09-28 14:33 | Outpatient (OUT) | payer OTHER, SELFPAY ==
--- NOTE | 2023-09-28 | XR_ITS ---
The [address] [address] Patient Name: GEO GARCIA MRN: [id number] date: 1990 Sex: F Assigned Patient Location: Current Patient Location: Accession/Order Number: [id number] Exam Date: 09/28/2023 14:35 Report Date: 09/30/2023 07:53 At the request of: CRISS URIBE Procedure: XR foot LT min 3V PROCEDURE: XR foot LT min 3V HISTORY: LEFT FOOT PAIN COMPARISON: XR foot left 09/06/2023 FINDINGS: BONES:Transverse fracture across base of 5th metatarsal with increased bone density of the fracture line. Mild osteopenia of the foot likely from decreased use. SOFT TISSUES:No visible soft tissue swelling. EFFUSION:None visible. OTHER: Negative. XR/XR foot LT min 3V IMPRESSION: 1. Stable, normal alignment and ongoing bone healing of 5th metatarsal fracture. Electronically authenticated by: RACHAEL MO Date: 09/30/2023 07:53
== END 2023-09-28 14:34 | disposition home or self-care (01) ==
LOC: EC 14:33
PROVIDERS: Visit Provider Podiatrist Foot & Ankle Surgery
DX: S92.355D Nondisplaced fracture of fifth metatarsal bone, left foot, subsequent encounter for fracture with routine healing (principal)
CPT/HCPCS: 73630

== ENCOUNTER 2023-10-20 14:26 | Outpatient (OUT) | payer OTHER, SELFPAY ==
--- NOTE | 2023-10-20 | XR_ITS ---
[address] [address] Patient Name: GEO GARCIA MRN: [id number] date: 1990 Sex: F Assigned Patient Location: Current Patient Location: Accession/Order Number: [id number] Exam Date: 10/20/2023 14:34 Report Date: 10/20/2023 16:33 At the request of: CRISS URIBE Procedure: XR foot LT min 3V PROCEDURE: XR foot LT min 3V COMPARISON: 09/28/2023 HISTORY: LEFT FOOT PAIN FINDINGS: BONES:Stable transverse extra-articular fracture base of the fifth metatarsal. Incomplete bony bridging. Permeative pattern of the bones suggests osteopenia. No new fracture or dislocation. SOFT TISSUES:Negative. No visible soft tissue swelling. EFFUSION:None visible. OTHER: Negative. XR/XR foot LT min 3V IMPRESSION: Stable fifth metatarsal fracture with partial bony bridging Electronically authenticated by: MING SOUSA Date: 10/20/2023 16:33
== END 2023-10-20 14:27 | disposition home or self-care (01) ==
LOC: EC 14:26
PROVIDERS: Visit Provider Podiatrist Foot & Ankle Surgery
DX: M79.672 Pain in left foot (principal); S92.355D Nondisplaced fracture of fifth metatarsal bone, left foot, subsequent encounter for fracture with routine healing
CPT/HCPCS: 73630

== ENCOUNTER 2024-03-06 19:49 | Emergency (ER) | payer OTHER, SELFPAY ==
[2024-03-06 19:54] VITALS: BP 150/101; PULSE 119; TEMP 36.2; O2SAT 96; BMI 35.4
--- OUTSIDE RECORDS SUMMARY | 2024-03-06 19:56 | XMS_ITS | CCD ---
Author Organization [facility] Care Team Providers Care Rug Repairer Name Role Phone KARASIK, GOVIND Unavailable Unavailable KARASIK, GOVIND Unavailable Unavailable REQUEST, NONE LISTED Unavailable Unavailable KARASIK, GOVIND Unavailable Unavailable RODY, LINH Unavailable Unavailable SAMI LABOY Unavailable Unavailable KARASIK, GOVIND Unavailable Unavailable KARASIK, [...] Unavailable KARASIK, GOVIND Unavailable Unavailable MAGDIEL LOMAX Unavailable Unavailable MING POTTER Unavailable Unavailable GENIA LUCAS Unavailable Unavailable HAY, MAKENNA A Unavailable Unavailable REQUEST, NONE LISTED Unavailable Unavailable HAY, DENISE Unavailable Unavailable HAY, DENISE Unavailable Unavailable MING SOUSA V Unavailable Unavailable GRECHARLENE, YOLANDE Unavailable Unavailable KARASIK, GOVIND Unavailable Unavailable KARASIK, GOVIND Unavailable Unavailable KARASIK, GOVIND Unavailable Unavailable TRINIDAD BROWN Attending Unavailable NO PCP, NO PCP Primary Care Unavailable Problems Active Problems Problem Classification Problem [...] TUNNEL SYND SARAVANAN UPPER LIMBS] Onset: 08-23-2017 Unclassified (1 source) Acute embolism and thrombosis of left peroneal vein; Translations: [Acute embolism and thrombosis of left peroneal vein] Onset: 09-01-2023 Unclassified (1 source) Hospital Follow-up Onset: 09-01-2023 Past or Other Problems Problem Classification Problem [...] HPV IF ASCon 018 DIAGNOSIS: Comment Abnormal [facility] Comment on above: Result Comment: EPIT HELIAL CELL ABNORMALITY.LOW-GRADE SQUAMOUS INTRAEPITHELIAL LESION (LGSIL); MILD DYSPLASIA ISPRESENT.FUNGAL ORGANISMS MORPHOLOGICALLY CONSISTENT WITH DAISY SPECIES AREPRESENT. Performed By: #### C BC ####[facility] [address] [place] [address] Amna Electronically signed by: Comment Normal [facility] Comment on above: Result Comment: Kelsie Marin MD, Pathologist Performed By: #### C BC ####[facility] [address] [place] [address] Amna Methodology: Comment Normal [facility] Comment on above: Result Comment: This liquid based SurePath(R) pap test was screened with theassistance of an image guided system. Performed By: #### C BC ####[facility] Zd[address]oyy[address] [place] [address] Amna Note: Comment Normal [facility] Comment on above: Result Comment: The Pap smear is a screening test designed to aid in the detection ofpremalignant and malignant conditions of the uterine cervix. It is not adiagnostic procedure and should not be used as the sole means of detectingcervical cancer. Both false-positive and false-negative reports do occur. . Performed By: #### C BC ####[facility] [address] [place] [address] Amna Performed by: Comment Normal [facility] Comment on above: Result Comment: Aicha Sousa, Mounter Hand (ASCP) Performed By: #### C BC ####[facility] Jpgropy[address] [place] [address] Amna Protein Comment Normal [facility] Comment on above: Result Comment: R87. 612, R87.5 Performed By: #### C BC ####[facility] Pkprur[address] [place] [address] Am[place] Reflex Criteria: Comment Normal [facility] Comment on above: Result Comment: The HPV DNA reflex criteria were not met with this specimen resulttherefore, no HPV testing was performed. . Performed By: #### C BC ####[facility] Odvbqntwvk4197 [address] Specimen adequacy: Comment Normal [facility] Comment on above: Result Comment: Sati sfactory for evaluation. Endocervical and/or squamous metaplasticcells (endocervical component) are present. Performed By: #### C BC ####[facility] Sxtinmxxal2572 [address] . . Normal [facility] Comment on above: Performed By: #### C BC ####[facility] Uugzsjtboy4625 [address] C-SPINE WO CONon 08-21-[address] C-SPINE WO CON [address] [place] [address] Patient: GEO GARCIA Exam Date: 08/20/2017DOB: 1990 Gender:F : CARITO ARZATE Admission #: [id number] : DR DENISE PINEDA . Order #: [id number] HERE TO VIEW EXAM RADIOLOGY REPORT PROCEDURE: [...] 1. No acute abnormality Dictated by: Ming Sousa M.D. on 08/20/2017 at 16:17 Approved by: Ming Sousa M.D. on 08/20/2017 at 16:20 Normal [facility] PREG HCG QUALon 07-04-2017 , QUAL Negative Normal NEGATIVE [facility] Comment on above: Performed By: #### C BC ####[facility] Myevaynjlg1421 [address] PAP ACOG PANEL 2: 21 to 29on 06-01-2017 Age Gdln ACOG Testing 21-29 Normal [facility] Comment on above: Performed By: #### C BC ####[facility] Nhebepusti[address] [place] [address] Amna COMMENT Comment Normal [facility] Comment on above: Result Comment: Z01. 419 Performed By: #### C BC ####[facility] [address]mdapkwvnq[address] [place] [address] Amna DIAGNOSIS: Comment Abnormal [facility] Comment on above: Result Comment: EPIT HELIAL CELL ABNORMALITY.LOW-GRADE SQUAMOUS INTRAEPITHELIAL LESION (LGSIL); MILD DYSPLASIA ISPRESENT. Performed By: #### C BC ####[address] Amna Electronically signed by: Comment Normal [facility] Comment on above: Result Comment: Kelsie Marin MD, Pathologist Performed By: #### C BC ####[facility] [address]mr[address]eqqsx[address] [place] [address] Amna Methodology: Comment Normal [facility] Comment on above: Result Comment: This liquid based SurePath(R) pap test was screened with theassistance of an image guided system. Performed By: #### C BC ####[facility] Wekexqusso[address] [place] [address] Amna Note: Comment Normal [facility] Comment on above: Result Comment: The Pap smear is a screening test designed to aid in the detection ofpremalignant and malignant conditions of the uterine cervix. It is not adiagnostic procedure and should not be used as the sole means of detectingcervical cancer. Both false-positive and false-negative reports do occur. . Performed By: #### C BC ####[facility] [address]pss[address] [place] [address] Amna Performed by: Comment Normal [facility] Comment on above: Result Comment: Haley Bettencourt, Mounter Hand (ASCP) Performed By: #### C BC ####[facility] L[address] [place] [address] 13179Fiumxt Amna Protein Comment Normal [facility] Comment on above: Result Comment: R87. 612 Performed By: #### C BC ####[facility] Ltkzicwsvf[address] [place], [place] [address]Gerken Amna Reflex Criteria: Comment Normal [facility] Comment on above: Result Comment: The HPV DNA reflex criteria were not met with this specimen resulttherefore, no HPV testing was performed. . Performed By: #### C BC ####[facility] Q[address] [place] [address] Amna Specimen adequacy: Comment Normal [facility] Comment on above: Result Comment: Sati sfactory for evaluation. Endocervical and/or squamous metaplasticcells (endocervical component) are present. Performed By: #### C BC ####[facility] Gvvontamaf[address] [place] [address] Amna . . Normal [facility] Comment on above: Performed By: #### C BC ####[facility] Ytqzelzcph[address] [place], [place] [address]Gerken Amna CBC AUTO DIFFon 01-14-2017 Basophils Auto #/vol (Bld) 0.0 103/ul Normal 0.0-0.1 [facility] Comment on above: Performed By: #### C BC ####[facility] Cyco[address]srjn[address] [place] [address] Amna Basophils/100 WBC Auto (Bld) 0.2 % Normal 0.2-2.0 [facility] Comment on above: Performed By: #### C BC ####[facility] Abtheezpxi[address] [place] [address] Am[place] Eosinophils 0.3 103/ul Normal 0.0-0.7 [facility] Comment on above: Performed By: #### C BC ####[facility] Kweuyhviuc[address] [place] [address] Am[place] Eosinophils/100 leukocytes 3.5 % Normal 0.9-7.0 [facility] Comment on above: Performed By: #### C BC ####[facility] T[address]xtzoqf3422 [place] [phone] Erythrocyte distribution width Auto Ratio (RBC) 13.5 % Normal 11.0-15.0 [facility] Comment on above: Performed By: #### C BC ####[facility] Phorepdnoy4934 [place] [phone] [place] Erythrocytes (RBC) 3.12 106/ul Critically low 4.20-5.40 [facility] Comment on above: Performed By: #### C BC ####[facility] Tpschudtkr9012 [place] [phone] [place] Hematocrit (HCT) 27.8 % Critically low 36.0-48.0 [facility] Comment on above: Performed By: #### C BC ####[facility] [address]kw[address]oy2010 [place] [address] Hemoglobin mass conc (Bld) 8.9 g/dL Critically low 12.0-16.0 [facility] Comment on above: Performed By: #### C BC ####[facility] Dufjrivvsz[address] [place], [place] [address]Gerken Amna IG # 0.04 10e3/ul Critically high 0.00-0.03 [facility] Comment on above: Performed By: #### C BC ####[facility] Ywvexhrxxz1404 [address] Am[place] IG % 0.5 % Normal 0.0-0.5 [facility] Comment on above: Performed By: #### C BC ####[facility] Jruaseiymy2636 [place] [phone] Lymphocytes 2.2 103/ul Normal 1.2-3.8 [facility] Comment on above: Performed By: #### C BC ####[facility] Ynxozubuoi[address] [place] [address] Am[place] Lymphocytes/100 leukocytes 26.4 % Normal 20.5-60.0 [facility] Comment on above: Performed By: #### C BC ####[facility] Emkuxkznby[address] [place] [address] Amna MANUAL DIFF REQ NO Normal [facility] Comment on above: Result Comment: NO Performed By: #### C BC ####[facility] Nvlbvwcbcy2828 [address] Am[place] MCH 28.5 pg Normal 26.7-34.0 [facility] Comment on above: Performed By: #### C BC ####[facility] Bcyxnwzjfu2323 [address] Am[place] MCHC mass conc (RBC) 32.0 g/dL Normal 29.9-35.2 [facility] Comment on above: Performed By: #### C BC ####[facility] [address]qqy[address] [place] [address] Am[place] MCV 89.1 fL Normal 81.0-99.0 [facility] Comment on above: Performed By: #### C BC ####[facility] [address]om[address] [place] [address] Am[place] Monocytes 0.7 103/ul Normal 0.3-0.8 [facility] Comment on above: Performed By: #### C BC ####[facility] [address]qfopcb[address] [place] [address] Am[place] Monocytes/100 leukocytes 8.5 % Normal 1.7-12.0 [facility] Comment on above: Performed By: #### C BC ####[facility] [address]zwywgc[address] [place] [address] Am[place] Neutrophils 5.1 103/ul Normal 1.4-6.5 [facility] Comment on above: Performed By: #### C BC ####[facility] Qs[address] [place] [address] Am[place] Neutrophils/100 WBC Auto (Bld) 60.9 % Normal 43.0-75.0 [facility] Comment on above: Performed By: #### C BC ####[facility] Arojeujr[address] [place] [address] [place] Platelet mean volume (PMV) 10.0 fL Normal 9.5-13.5 [facility] Comment on above: Performed By: #### C BC ####[facility] [address] [place], [place] [address]Skosxj Amna Platelets 142 103/ul Critically low 150-450 [facility] Comment on above: Performed By: #### C BC ####[facility] Rdemzdoyue4049 [place], [place] [address]Uhvgcq Amna WBC (Leukocytes) 8.3 103/ul Normal 4.0-11.0 [facility] Comment on above: Performed By: #### C BC ####[facility] Effiayqwmz0141 [place], [place] [address]Oddqac Amna CBC AUTO DIFFon 01-13-2017 Basophils Auto #/vol (Bld) 0.0 103/ul Normal 0.0-0.1 [facility] Comment on above: Performed By: #### C BC ####[facility] [address] [place] [address]Zmxmgx Amna Basophils/100 WBC Auto (Bld) 0.3 % Normal 0.2-2.0 [facility] Comment on above: Performed By: #### C BC ####[facility] Qjua[address]ib[address] [place] [address]Eisaxb Amna Eosinophils 0.3 103/ul Normal 0.0-0.7 [facility] Comment on above: Performed By: #### C BC ####[facility] Nxfx[address] [place] [address]Zxjbpa Amna Eosinophils/100 leukocytes 3.3 % Normal 0.9-7.0 [facility] Comment on above: Performed By: #### C BC ####[facility] Detzarfhcd0687 [place], [place] [address]Jggsuq Amna Erythrocyte distribution width Auto Ratio (RBC) 13.3 % Normal 11.0-15.0 [facility] Comment on above: Performed By: #### C BC ####[facility] [address] [place] [address]Jmwnhu Amna Erythrocytes (RBC) 3.49 106/ul Critically low 4.20-5.40 [facility] Comment on above: Performed By: #### C BC ####[facility] Crscexebqy6594 [address] [place] Hematocrit (HCT) 30.7 % Critically low 36.0-48.0 [facility] Comment on above: Performed By: #### C BC ####[facility] Voomaepccx8726 [address] Am[place] Hemoglobin mass conc (Bld) 10.1 g/dL Critically low 12.0-16.0 [facility] Comment on above: Performed By: #### C BC ####[facility] [address]wli[address] [place] [address] Amna IG # 0.02 10e3/ul Normal 0.00-0.03 [facility] Comment on above: Performed By: #### C BC ####[facility] Jsses[address] [place] [address] Amna IG % 0.3 % Normal 0.0-0.5 [facility] Comment on above: Performed By: #### C BC ####[facility] [address]zvewvlc[address] [place] [address] Amna Lymphocytes 2.1 103/ul Normal 1.2-3.8 [facility] Comment on above: Performed By: #### C BC ####[facility] Gvxkhenubb[address] [place] [address] Am[place] Lymphocytes/100 leukocytes 25.8 % Normal 20.5-60.0 [facility] Comment on above: Performed By: #### C BC ####[facility] Cwtnzncnyh[address] [place] [address] Amna MANUAL DIFF REQ NO Normal [facility] Comment on above: Result Comment: NO Performed By: #### C BC ####[facility] N[address]crbtrnh[address] [place] [address] Am[place] MCH 28.9 pg Normal 26.7-34.0 [facility] Comment on above: Performed By: #### C BC ####[facility] C[address]znrwfz[address] [place] [address] Amna MCHC mass conc (RBC) 32.9 g/dL Normal 29.9-35.2 [facility] Comment on above: Performed By: #### C BC ####[facility] Uovbhfjklf4672 [place] [phone] Woo MCV 88.0 fL Normal 81.0-99.0 [facility] Comment on above: Performed By: #### C BC ####[facility] Svbflossmm2517 [place] [phone] Amna Monocytes 0.7 103/ul Normal 0.3-0.8 [facility] Comment on above: Performed By: #### C BC ####[facility] [address] [place], [place] [address]Gerrobert [place]etten Monocytes/100 leukocytes 8.9 % Normal 1.7-12.0 [facility] Comment on above: Performed By: #### C BC ####[facility] Cyjq[address]uxsvx[address] [place], [place] [address]ken Amna Neutrophils 4.9 103/ul Normal 1.4-6.5 [facility] Comment on above: Performed By: #### C BC ####[facility] Z[address]vtusajv[address] [place], [place] [address]ken Amna Neutrophils/100 WBC Auto (Bld) 61.4 % Normal 43.0-75.0 [facility] Comment on above: Performed By: #### C BC ####[facility] Mskusihhxb[address] [place], [place] [address]Salud Woo Platelet mean volume (PMV) 10.3 fL Normal 9.5-13.5 [facility] Comment on above: Performed By: #### C BC ####[facility] Xjds[address]aclpf2665 [place] [address] Amna Platelets 205 103/ul Normal 150-450 [facility] Comment on above: Performed By: #### C BC ####[facility] Cngnftncdo6753 [place] [phone] Am[place] WBC (Leukocytes) 8.0 103/ul Normal 4.0-11.0 [facility] Comment on above: Performed By: #### C BC ####[facility] Thgrohlrtn1539 [place], [place] [address]Yuenqk Amna DRUG SCRN UR RAPIDon 017 BARBITURATES Negative Normal NEGATIVE [facility] Comment on above: Result Comment: NEGA TIVE Performed By: #### C BC ####[facility] Zjnttmmpjd4744 [place], [place] [address]Ejepbb Amna PCP Negative Normal NEGATIVE [facility] Comment on above: Result Comment: NEGA TIVE Performed By: #### C BC ####[facility] Mhcnbakkuq5874 [place], [place] [address]Mwfipw Amna THC Negative Normal NEGATIVE [facility] Comment on above: Result Comment: NEGA TIVE Performed By: #### C BC ####[facility] Uwkpbodmyl7698 [place], [place] [address]Djqhxm Amna THRESH CONC 25 THRESHOLD CONCENTRATION IS 25 ng/mL. Normal [facility] Comment on above: Result Comment: THRE SHOLD CONCENTRATION IS 25 ng/mL. Performed By: #### C BC ####[facility] Zeysjszyob1468 [place], [place] [address]Lgibms Amna THRESHOLD CONC 1000 THRESHOLD CONCENTRATION IS 1000 ng/mL. Normal [facility] Comment on above: Result Comment: THRE SHOLD CONCENTRATION IS 1000 ng/mL. Performed By: #### C BC ####[facility] Oqrxbyiity5647 [place], [place] [address]Xwqjon Amna THRESHOLD CONC 200 THRESHOLD CONCENTRATION IS 200 ng/mL. Normal [facility] Comment on above: Result Comment: THRE SHOLD CONCENTRATION IS 200 ng/mL. Performed By: #### C BC ####[facility] Uzclbqehmz9088 [place], [place] [address]Gwkewa Amna THRESHOLD CONC 300 THRESHOLD CONCENTRATION IS 300 ng/mL. Normal [facility] Comment on above: Result Comment: THRE SHOLD CONCENTRATION IS 300 ng/mL. Performed By: #### C BC ####[facility] Hugjevbdpv4545 [place] [phone] Amna THRESHOLD CONC 50 THRESHOLD CONCENTRATION IS 50 ng/mL. Normal [facility] Comment on above: Result Comment: THRE SHOLD CONCENTRATION IS 50 ng/mL. Performed By: #### C BC ####[facility] Ljdcbdqfhj1630 [place] [address] Amna Urine, amphetamines presence Negative Normal NEGATIVE [facility] Comment on above: Result Comment: NEGA TIVE Performed By: #### C BC ####[facility] Nkcynjmpvn0311 [place] [address] Amna Urine, benzodiazepines presence Negative Normal NEGATIVE [facility] Comment on above: Result Comment: NEGA TIVE Performed By: #### C BC ####[facility] Yqcibuljrr2325 [address] [place] Urine, cocaine presence Negative Normal NEGATIVE [facility] Comment on above: Result Comment: NEGA TIVE Performed By: #### C BC ####[facility] Hlzvugharc[address] [place], [place] [address] Amna Urine, methadone presence Negative Normal NEGATIVE [facility] Comment on above: Result Comment: NEGA TIVE Performed By: #### C BC ####[facility] Dwfmvajklt8049 [address] [place] Urine, opiates presence Negative Normal NEGATIVE [facility] Comment on above: Result Comment: NEGA TIVE Performed By: #### C BC ####[facility] [address] [place] [address] Amna CHLAMYDIA AND GC AMPLIFon Chlamydia Amplif Negative Normal [facility] Comment on above: Result Comment: Test Performed By: [facility] [address] [place] [address] Dual Hose Cementer: Chantel Santiago MD, PhD Performed By: #### C BC ####[facility] [address]poif[address]rb[address] [place] [address] Amna GC Amplification Negative Normal [facility] Comment on above: Performed By: #### C BC ####[facility] Taeuybqami7027 [address] [place] GC/Chlam Amp Source VAGINAL Normal [facility] Comment on above: Performed By: #### C BC ####[facility] Fgvgcntsed7030 [place], [place] [address]Juqfiv Amna RPR/SERUMon 12-09-2016 Reagin antibody presence Non Reactive Normal NR [facility] Comment on above: Result Comment: Test Performed By: [facility] [employer] [address] [place] [address] Dual Hose Cementer: Chantel Santiago MD, PhD Performed By: #### R WI ####[facility] Mvqqbahuhb5801 [place], [place] [address]Knizvd Amna CBC AUTO DIFFon 12-08-2016 Basophils Auto #/vol (Bld) 0.0 103/ul Normal 0.0-0.1 [facility] Comment on above: Performed By: #### C BC ####[facility] Bebwpryvzn[address] [place], [place] [address]Gerken Amna Basophils/100 WBC Auto (Bld) 0.3 % Normal 0.2-2.0 [facility] Comment on above: Performed By: #### C BC ####[facility] Helzxsnztc[address] [place], [place] [address]Gerken Amna Eosinophils 0.2 103/ul Normal 0.0-0.7 [facility] Comment on above: Performed By: #### C BC ####[facility] Xsflkjdypy[address] [place], [place] [address]Gerken Amna Eosinophils/100 leukocytes 2.9 % Normal 0.9-7.0 [facility] Comment on above: Performed By: #### C BC ####[facility] Qctqhhbgnh3291 [place] [address]Gerken Amna Erythrocyte distribution width Auto Ratio (RBC) 12.7 % Normal 11.0-15.0 [facility] Comment on above: Performed By: #### C BC ####[facility] Sxymofhvpc8838 [place] [address]Ger[place] Amna Erythrocytes (RBC) 3.44 106/ul Critically low 4.20-5.40 [facility] Comment on above: Performed By: #### C BC ####[facility] Fsuqpkcyuk3984 [address] [place] Hematocrit (HCT) 31.2 % Critically low 36.0-48.0 [facility] Comment on above: Performed By: #### C BC ####[facility] Jaz[address]tyyv[address] [place] [address] Amna Hemoglobin mass conc (Bld) 10.5 g/dL Critically low 12.0-16.0 [facility] Comment on above: Performed By: #### C BC ####[facility] [address]qotywbgzj[address] [place] [address] Amna IG # 0.03 10e3/ul Normal 0.00-0.03 [facility] Comment on above: Performed By: #### C BC ####[facility] F[address]rtaysbll[address] [place] [address] Amna IG % 0.4 % Normal 0.0-0.5 [facility] Comment on above: Performed By: #### C BC ####[facility] Jfmdzknudg[address] [place] [address] Amna Lymphocytes 1.7 103/ul Normal 1.2-3.8 [facility] Comment on above: Performed By: #### C BC ####[facility] M[address]wyrocuw[address] [place] [address] Am[place] Lymphocytes/100 leukocytes 22.8 % Normal 20.5-60.0 [facility] Comment on above: Performed By: #### C BC ####[facility] Ib[address]jrscua[address] [place] [address] Amna MANUAL DIFF REQ NO Normal [facility] Comment on above: Performed By: #### C BC ####[facility] Vosarjvvpa[address] [place] [address] Amna MCH 30.5 pg Normal 26.7-34.0 [facility] Comment on above: Performed By: #### C BC ####[facility] Yehjsvsbiu[address] [place] [address] Amna MCHC mass conc (RBC) 33.7 g/dL Normal 29.9-35.2 [facility] Comment on above: Performed By: #### C BC ####[facility] Xikgquufir7797 [place], [place] [address]Qxucpy Amna MCV 90.7 fL Normal 81.0-99.0 [facility] Comment on above: Performed By: #### C BC ####[facility] Yromjizcyb7814 [place], [place] [address]Xvmvti Amna Monocytes 0.6 103/ul Normal 0.3-0.8 [facility] Comment on above: Performed By: #### C BC ####[facility] Oukmtsgaob9337 [place], [place] [address]Etnkan Amna Monocytes/100 leukocytes 8.7 % Normal 1.7-12.0 [facility] Comment on above: Performed By: #### C BC ####[facility] [address] [place] [address]Euyxtf Amna Neutrophils 4.7 103/ul Normal 1.4-6.5 [facility] Comment on above: Performed By: #### C BC ####[facility] K[address] [place] [address]Smsbbb Amna Neutrophils/100 WBC Auto (Bld) 64.9 % Normal 43.0-75.0 [facility] Comment on above: Performed By: #### C BC ####[facility] Wxpcrgcapy6155 [place], [place] [address]Rhbfli Amna Platelet mean volume (PMV) 9.1 fL Critically low 9.5-13.5 [facility] Comment on above: Performed By: #### C BC ####[facility] Rinmjhrxxo9074 [place], [place] [address]Rnyxfp Amna Platelets 200 103/ul Normal 150-450 [facility] Comment on above: Performed By: #### C BC ####[facility] Rmlhxvbptj7963 [place], [place] [address]Jdeqlj Amna WBC (Leukocytes) 7.3 103/ul Normal 4.0-11.0 [facility] Comment on above: Performed By: #### C BC ####[facility] Whsjsahevf[address] [place] CULTURE URINEon 12-08-2016 CULTURE URINE Culture Observations : Final, scanned result to follow in HPF Normal [facility] Comment on above: Performed By: #### C XUR ####[facility] [id number] [place] GLYCOHEMOGLOBIN A1Con 2016 Glucose mass conc 91 mg/dL Normal [facility] Comment on above: Performed By: #### A 1C ####[facility] Homeilnswd7[address] [place] Hemoglobin A1c/Hemoglobin.total mass fraction (Bld) 4.8 % Normal <=6.0 [facility] Comment on above: Performed By: #### A 1C ####[facility] [address] [place] [address] [place] GROUP B STREPTon 12-08-2016 GBS Performed by [facility] , final report to follow Normal NEG FOR GBS [facility] Comment on above: Performed By: #### C BC ####[facility] [address] [place] [address] [place] HEP B SURFACE AGon 7 HEP B Surface Ag Negative Normal NEGATIVE [facility] Comment on above: Performed By: #### H BSAG2, HCV2 ####[facility] Rakarakksv[address] [place] HEP C ANTIBODYon 12-08-2016 Anti HCV Negative Normal NEGATIVE [facility] Comment on above: Performed By: #### H BSAG2, HCV2 ####[facility] Dslvtxmgbb1948 [address] [place] HIV 1 AND 2 ABon 12-08-2016 HIV 1 AND 2 AB Negative Normal NEGATIVE [facility] Comment on above: Performed By: #### H IV12 ####[facility] Zmumrbujyc[address] [place] RUBELLA AB IGGon 12-08-2016 RUB HEADER SEE BELOW Normal [facility] Comment on above: Result Comment: or=1 5.0 IU/mL POSITIVE WHO considers levels >or= 10.0 IU/mL to be positive immune status Performed By: #### R UBG ####[facility] [address] [place], [place] [address]GokvlqSalud Woo RUB IGG 67.0 IU/mL Normal [facility] Comment on above: Performed By: #### R UBG ####[facility] [address] [place], [place] [address]HfdmxrSalud Woo TYPE AND SCREENon 12-08-2016 TYPE AND SCREEN Negative Normal [facility] [place] [facility] Comment on above: Performed By: #### T NS ####[facility] [address] [place], [place] [address] [place] US PREG ANATOMY SINGLEon US PREG ANATOMY SINGLE [address] [place] [address] Patient: GEO GARCIA Exam Date: 11/19/2016DOB: 1990 Gender:F : DR LINH FINE Admission #: [id number] : DR GOVIND ODONNELL . Order #: [id number] HERE TO VIEW EXAM RADIOLOGY REPORT PROCEDURE: [...] Laboy M.D. on 11/19/2016 at 20:54 Normal [facility] Encounters Encounter Date Encounter Type Care Provider Facility Start: 09-01-2023 End: 09-01-2023 ambulatory [facility] Start: 11-09-2017 End: 11-09-2017 Patient encounter GOVIND ODONNELL Facility: Start: 08-20-2017 End: 08-20-2017 Patient encounter NONE LISTED REQUEST Facility:H1 Start: 07-04-2017 End: 07-04-2017 Patient encounter GOVIND ODONNELL Facility:[facility]1 Start: 06-29-2017 End: 06-30-2017 Patient encounter GOVIND ODONNELL Facility:[facility]1 Start: 05-27-2017 End: 05-27-2017 Patient encounter GOVIND ODONNELL Facility:[facility]1 Start: 01-13-2017 End: 01-15-2017 Evaluation and management of inpatient GOVIND ODONNELL Facility:[facility]1 Start: 12-15-2016 End: 12-15-2016 Patient encounter GOVIND ODONNELL Facility:[facility]1 Start: 12-08-2016 End: 12-09-2016 Patient encounter GOVIND ODONNELL Facility:[facility]1 Start: 11-19-2016 End: 11-20-2016 Patient encounter GOVIND ODONNELL Facility: Procedures Date Procedure Procedure Detail Performing Clinician Start: 01-13-2017 Delivery of Products of Conception, External Approach GOVIND ANDREWSLui Start: 01-13-2017 Drainage of Amniotic Fluid, Therapeutic from Products of Conception, Via Natural or Artificial Opening GOVIND ODONNELL Payers Date Payer Category Payer Medicaid 1990 Unknown [id number] 1957 Unknown [id number] Summary Purpose Family History No Family History Records FoundNo Family History Records Found Advance Directives No Advanced Directives Records FoundNo Advanced Directives Records Found Additional Source Comments INFORMATION SOURCE (unrecogn ized section and content) DATE CREATED AUTHOR 11/17/2017 [facility] DATE CREATED AUTHOR AUTHOR'S ORGANIZ ATION 09/03/2023 [facility] FOR RECORDS PERTAINING TO PATIENTS WHO ARE [...] BE BASED ON THE PRIMARY CLINICAL RECORDS. [facility] [employer] provides no warranty or guarantee of the accuracy or completeness of information in this document.
[2024-03-06 20:03] VITALS: O2SAT 96
--- NOTE | 2024-03-06 20:10 | PC.NURSE ---
complains of right side neck swelling, sore throat, sinus drainage and right ear pain onset 4 or 5 days ago
--- NOTE | 2024-03-06 20:18 | ED.DENTAL1 ---
HPI - Dental/Oral General Chief complaint: Dental/Oral Stated complaint: Dental Pain Time Seen by Provider: 03/06/24 19:50 Source: patient Mode of arrival: walk-in Limitations: no limitations History of Present Illness HPI Narrative: Patient is a 33-year-old female who presents to the emergency department for increasing pain in tooth #2, as well as facial swelling to the right maxilla that she noted today. She states she initially had pain in front of the right ear and then noted facial swelling throughout the day with increasing pain of the right upper tooth. No drainage. She does have some associated nasal congestion, no fevers or vomiting. No medications taken prior to arrival. She has no concern for . She is a regular smoker. She denies any injury to the face or to the tooth. Related Data Previous Rx's ?Medication ?Instructions ?Recorded oxycodone-acetaminophen 5 mg-325 1 tab PO Q6H PRN pain 4 days #14 07/10/23 mg tablet (Percocet) tabs apixaban 5 mg tablet (Eliquis) See Rx Instructions .Route 08/09/23 .COMPLEX #74 tabs hydrocodone 5 mg-acetaminophen 325 1 tab PO Q6H PRN pain 3 days #12 08/09/23 mg tablet tabs methocarbamol 750 mg tablet 750 mg PO TID PRN pain #20 tabs 08/09/23 amoxicillin 875 mg-potassium 1 tab PO Q12H #20 tabs 03/06/24 clavulanate 125 mg tablet hydrocodone 5 mg-acetaminophen 325 1 tab PO Q6H PRN pain 3 days #12 03/06/24 mg tablet tabs ketorolac 10 mg tablet 10 mg PO TID PRN pain #10 tabs 03/06/24 ondansetron 4 mg disintegrating 4 mg PO Q6H PRN nausea and 03/06/24 tablet vomiting #12 tabs Allergies Allergy/AdvReac Type Severity Reaction Status Date / Time No Known Drug Allergies Allergy Verified 03/06/24 20:01 Review of Systems ROS Constitutional Denies: fever or chills Ears, nose, mouth, and throat Reports: mouth pain and nasal congestion; Denies: throat pain Cardiovascular Denies: chest pain Respiratory Reports: cough; Denies: shortness of breath Gastrointestinal Denies: nausea or vomiting Musculoskeletal Denies: back pain or neck pain Integumentary/Breast Denies: rash Neurological Denies: numbness in extremities or weakness in extremities PFSH [facility] Social History Little interest or pleasure in doing things: not at all Feeling down, depressed, or hopeless: not at all Exam Narrative Exam Narrative: Gen.: Awake, alert, in no distress Head: Normocephalic, atraumatic ENT: Moist mucous membranes, swelling to the right maxilla with right TM fluid-filled, no erythema or injection. Left TM is clear. Tooth #2 with root exposure, no visible abscess. No trismus or drooling, no redness or swelling under the tongue. Clear speech. No mandibular swelling or neck swelling Respiratory: No respiratory distress Extremities: Moves extremities equally Psych: Normal mood and affect Neuro: No focal neuro deficit Skin: Warm, dry, intact Constitutional Vital Signs, click to edit/add: Last Vital Signs Temp 97.2 F L 03/06/24 19:54 Pulse 119 H 03/06/24 19:54 Resp 18 03/06/24 19:54 BP 150/101 H 03/06/24 19:54 Pulse Ox 96 03/06/24 20:03 O2 Del Method Room Air 03/06/24 20:03 Course Vital Signs Vital signs: Vital Signs Temperature 97.2 F L 03/06/24 19:54 Pulse Rate 119 H 03/06/24 19:54 Respiratory Rate 18 03/06/24 19:54 Blood Pressure 150/101 H 03/06/24 19:54 Pulse Oximetry 96 03/06/24 19:54 Oxygen Delivery Method Room Air 03/06/24 19:54 Temperature 97.2 F L 03/06/24 19:54 Pulse Rate 119 H 03/06/24 19:54 Respiratory Rate 18 03/06/24 19:54 Blood Pressure 150/101 H 03/06/24 19:54 Pulse Oximetry 96 03/06/24 20:03 Oxygen Delivery Method Room Air 03/06/24 20:03 MDM - Dental/Oral MDM Narrative Medical decision making narrative: Patient treated for dental abscess and atypical facial pain. She was provided with topical analgesia, antibiotics and a short course of analgesics. She was referred to dental. Return to the emergency department if symptoms change or worsen SUPERVISED APC VISIT, PHYSICIAN ATTESTATION: Based on the medical record the care appears appropriate. ? Medical Records Attestation: I reviewed the patient's medical records. Discharge Plan Discharge Chief Complaint: Dental/Oral Clinical Impression: Dental abscess, Pain, dental, Atypical face pain Patient Disposition: Home, Self-Care Time of Disposition Decision: 20:16 Condition: Good Prescriptions / Home Meds: New hydrocodone-acetaminophen 5-325 mg tablet 1 tab PO Q6H PRN (Reason: pain) 3 Days Qty: 12 0RF Rx Instructions: DX: K08.89 amoxicillin-pot clavulanate 875-125 mg tablet 1 tab PO Q12H Qty: 20 0RF ketorolac 10 mg tablet 10 mg PO TID PRN (Reason: pain) Qty: 10 0RF ondansetron 4 mg tablet,disintegrating 4 mg PO Q6H PRN (Reason: nausea and vomiting) Qty: 12 0RF No Action Eliquis 5 mg tablet See Rx Instructions .ROUTE .COMPLEX Qty: 74 0RF Rx Instructions: 10mg PO BID x 7 days, then 5mg BID x 23 days hydrocodone-acetaminophen 5-325 mg tablet 1 tab PO Q6H PRN (Reason: pain) 3 Days Qty: 12 0RF Rx Instructions: DX: I82.482 methocarbamol 750 mg tablet 750 mg PO TID PRN (Reason: pain) Qty: 20 0RF oxycodone-acetaminophen [Percocet] 5-325 mg tablet 1 tab PO Q6H PRN (Reason: pain) 4 Days Qty: 14 0RF Rx Instructions: ICD 10 = S 99 Print Language: Cape Verdean Instructions: Dental Abscess (ED), Atypical Facial Pain (ED) Referrals: Physician,Non-Staff, MD [Primary Care Provider] - 1 week Discharge Date/Time: 03/06/24 20:46
[2024-03-06] MEDS: AMOXICILLIN/POT CLAV 875-125 MG TABLET 1 TAB PO (20:37)
[2024-03-06] MEDS: HYDROCODONE/ACET 5-325 MG TABLET 1 TAB PO (20:37)
[2024-03-06] MEDS: BENZOCAINE 30 ML, lidocaine HCL 15 ML MM (20:38)
--- NOTE | 2024-03-06 20:44 | PC.NURSE ---
i gave verbal and paper discharge orders along with 3 e-scripts and list of dentist to this patient and she voices yes to understanding. at time of discharge this patient voices no concerns and shows no signs of distress
== END 2024-03-06 20:46 | disposition home or self-care (01) ==
PROVIDERS: Emergency Provider Internal Medicine
DX: K04.7 Periapical abscess without sinus (principal); G50.1 Atypical facial pain; K08.89 Other specified disorders of teeth and supporting structures; F17.200 Nicotine dependence, unspecified, uncomplicated
CPT/HCPCS: 99283

== ENCOUNTER 2025-03-01 00:41 | Emergency (ER) | payer OTHER, SELFPAY ==
--- OUTSIDE RECORDS SUMMARY | 2018-07-26 19:00 | XMS_ITS | Continuity of Care Document ---
Author Organization [facility] Address [address] [place] [address] Phone Care Team Providers Care Shredder Picker Name Role Phone Norbert Crowder DO Unavailable Unavailable Allergies, Adverse Reactions, Alerts Substance Reaction Status Criticality No Known Allergies Active No Inform ation Procedures Procedure Date Alcohol and/or drug services- Acute Deto x Alcohol and/or drug services- Acute Deto x IMMUNIZATION ADMIN HEP A VACCINE, ADULT IM DRUG TEST PRSMV DIR OPT OBS URINE TEST Alcohol and/or drug services- Acute Deto x Advance Directives Directive Yes / No Effective Date File Name No Information Encounters Encounter Description Practice Location Reason(s) For Visit Diagnoses Date Provider Providers Copied on Encounter [facility], [address] [place] [address], [id number] , [place] tel: [phone] [facility] Detox Opioid dependence with withdrawalEncounter for test, result negative Apr-0 4-201 9 Pavlock DO [address], [place], [id number] , [place]. tel: [phone] [facility], [address] [place] [id number] , [place] tel:+ [phone] [facility] Detox fatigue (chief complaint) substance abuse (chief complaint) substance abuse (chief complaint) Opioid dependence with withdrawalEncounter for test, result negative Apr-0 3-201 9 Pavlock DO [address], [place], [id number] , [place]. tel: [phone] [facility], [address], [place], [id number] , [place] tel: [phone] [facility] Detox Opioid dependence with withdrawalEncounter for test, result negative 9 Lakesha Rice. [address], [place], [id number] , [place]. tel: [phone] Family History Family Member Type Diagnosis Age At Onset No Information Immunizations Vaccine Date Status Comments Hep A (adult) administered Source: New Im munization Record Payers Payer name Insurance type Covered democrat ID Authoriza tion(s) [place] 190 [id number] Medicaid Wrap - [facility] [id number] Social History Type Description Quantity Date Captured Comments Alcohol Use Details Unknown Caffeine Use Details Unknown Tobacco Use Status Smoking Status No Information Sex Female Sexual Orientation Straight or heterosexual Jul Gender Identity Male Vital Signs Date / Time: Height Weight BMI Pulse Rate Blood Pressure Temperature Respiratory Rate Body Surface Area Head Circumference Head Circ. Percentile Wt./Reid. Percentile BMI percentile Pulse Ox Inhaled Ox 7:45 AM 100 /min 106/68 mm[Hg] 98 % Chief Complaint And Reason For Visit No Information Reason For Referral Reason For Referral No Information History Of Present Illness Encounter Date Complaint History Of Prese nt Illness substance abuse The symptoms gen erally last 4 Years. The symptoms are reported as being moderate. The symptoms occur constantly. She states the symptoms are chronic. Pt has been a herion user for years she states some where between 4 and 5 years and she has not tried detox before but know she is ready for a change fatigue The patient pres ents with anorexia, nausea and somnolence. The patient does not present with abdominal pain, arthralgia, back pain, fever or vomiting. substance abuse Functional Status Date Functional Assessmen t No Information Instructions Date Instruction Additional Infor mation No Information Assessments Type Assessment Date assessment Opioid dependence with withdrawa l impression Pt in withdraw from opiates cont detox treatment and monitor for progress assessment Encounter for test, re sult negative Patient Care Teams Name Effective Dates (start - stop) Status Members No Information
[2025-03-01 00:45] VITALS: BP 150/94; PULSE 91; TEMP 36.4; O2SAT 98; BMI 39.5
--- NOTE | 2025-03-01 01:32 | ED.UPPEXIN1 ---
HPI HPI - Extremity Injury (Upper) General Chief Complaint: Extremity Injury, Upper Stated Complaint: WRIST PAIN, BOTH SIDES Time Seen by Provider: 03/01/25 01:10 Source: patient Mode of arrival: walk-in Limitations: no limitations History of Present Illness HPI narrative: 34-year-old female who is right-hand dominant presents for evaluation of bilateral wrist pain. The patient is currently working at [employer]. She states doing repetitive movements at her job is making her wrist pain worse. She has formally been wearing wrist splints but states they are not helping her. She has pain esthesia is worse at night making her have to shake her hands to get patient back. She has a positive Phalen and Tinel sign. She does admit that she recently has gained quite a bit of weight. I explained that may be contributing to the symptoms. She denies any injury. She was formally on Eliquis for a lower extremity DVT. She has been using ibuprofen without significant improvement. No recent injury. Related Data Home Medications ?Medication ?Instructions ?Recorded ?Confirmed No Known Home Medications 03/01/25 03/01/25 Allergies Allergy/AdvReac Type Severity Reaction Status Date / Time No Known Drug Allergies Allergy Verified 03/01/25 00:48 Opioid HPI Opioid Management Most Recent Pain and Opioid Data: Last Pain Scale 9 Today, 00:45 Review of Systems ROS Status of ROS 10 or more systems reviewed and unremarkable except as noted in history and below PFSH PFSH Social History Little interest or pleasure in doing things: not at all Feeling down, depressed, or hopeless: not at all Exam Narrative Exam Narrative: Vital signs and Nursing Notes reviewed: Patient is afebrile with a normal pulse, blood pressure is mildly elevated at 150/94, she is not hypoxic with pulse ox of 98% on room air General: Awake, alert, oriented, overweight female, no acute distress, lying comfortably on the stretcher HEENT: Normocephalic atraumatic, mucous membranes are moist and pink, eyes are clear, normal conjunctiva, vision is grossly intact Neck: Supple, fullness across anterior neck ? goiter Chest: Lungs are clear to auscultation with good air entry, there is no wheezing rhonchi or rales appreciated no accessory muscle use, patient is speaking in complete sentences- CVS: Regular rate and rhythm S1-S2, no murmurs rubs or gallops, pulses are brisk and equal bilaterally Extremities: There is full range of motion of her upper extremities. There is no redness swelling or notable deformity to either wrist. She does have a positive Tinel and Phalen sign. Fingers are warm and sensate, she is able to approximate thumb and all fingers without difficulty. Radial pulses brisk. Skin: Normal in appearance without rash,pallor, petechiae or purpura Neuro: No focal deficits Constitutional Vital Signs, click to edit/add: Last Vital Signs Temp 97.6 F 03/01/25 00:45 Pulse 91 H 03/01/25 00:45 Resp 17 03/01/25 00:45 BP 150/94 H 03/01/25 00:45 Pulse Ox 98 03/01/25 00:45 O2 Del Method Room Air 03/01/25 00:45 Course Vital Signs Vital signs: Vital Signs Temperature 97.6 F 03/01/25 00:45 Pulse Rate 91 H 03/01/25 00:45 Respiratory Rate 17 03/01/25 00:45 Blood Pressure 150/94 H 03/01/25 00:45 Pulse Oximetry 98 03/01/25 00:45 Oxygen Delivery Method Room Air 03/01/25 00:45 Temperature 97.6 F 03/01/25 00:45 Pulse Rate 91 H 03/01/25 00:45 Respiratory Rate 17 03/01/25 00:45 Blood Pressure 150/94 H 03/01/25 00:45 Pulse Oximetry 98 03/01/25 00:45 Oxygen Delivery Method Room Air 03/01/25 00:45 MDM - Extremity Injury (Upper) MDM Narrative Medical decision making narrative: This 34-year-old female presents for evaluation of bilateral wrist pain. She thinks that she has carpal tunnel syndrome. She has been evaluated for that in the past and has been prescribed splints. She states she has been using them but they are not helping her. 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 She does have a positive Tinel and Phalen sign. She states symptoms are worse at night when she is sleeping and wakes up having to shake her arms to relieve paresthesias and return sensation to normal in her hands and wrist. She has not had any injury. She is neurovascularly intact. She has been using ibuprofen without relief. She does have some fullness across her anterior neck and I offered TSH but she declines. I explained to her that hypothyroidism can contribute to carpal tunnel syndrome, additionally the patient admits that she has recently gained quite a bit of weight likely related to alcohol use and this may also be contributing to the increase in discomfort related to carpal tunnel in both wrists. She was agreeable to a Medrol Dosepak which I explained to her may help her somewhat but can also contribute to additional weight gain. She states she is not worried about the weight gain and was agreeable to the Medrol Dosepak. She will be also given a prescription for ibuprofen 600 mg to use 1 she is finished with the Medrol Dosepak. Discharge Plan Discharge Chief Complaint: Extremity Injury, Upper Clinical Impression: Bilateral wrist pain, Carpal tunnel syndrome on both sides Patient Disposition: Home, Self-Care Time of Disposition Decision: 01:44 Condition: Good Prescriptions / Home Meds: No Action No Known Home Medications Print Language: Congolese Instructions: Carpal Tunnel Syndrome (DC), Paresthesia (ED), Carpal Tunnel Surgery (DC) Additional Instructions: Use the steroid pack as directed. Please do not use ibuprofen while taking steroids. Gentle stretching and use of the wrist splints that you have used in the past may help relieve some of your symptoms. Please follow-up closely with outpatient orthopedics for further evaluation and treatment. Referrals: Clifton Jaramillo DO [Physician, Orthopedics] - 1 week Physician,Non-Staff, [Primary Care Provider] - 1 week
--- OUTSIDE RECORDS SUMMARY | 2025-03-01 01:42 | XMS_ITS | CCD ---
Author Organization [facility] Care Team Providers Care Aircraft Maintenance Engineer Name Role Phone KARASIK, GOVIND Unavailable Unavailable [...] POTTER Unavailable Unavailable GENIA LUCAS Unavailable Unavailable MAKENNA GUIDO A Unavailable Unavailable REQUEST, NONE LISTED Unavailable Unavailable DENISE PINEDA Unavailable Unavailable DENISE PINEDA Unavailable Unavailable MING SOUSA V Unavailable Unavailable YOLANDE FLORES Unavailable Unavailable KARASIK, GOVIND Unavailable Unavailable KARASIK, GOVIND Unavailable Unavailable KARASIK, GOVIND Unavailable Unavailable MIKEY JONES Attending Unavailable NO PCP, NO PCP Primary Care Unavailable No Pcp, No Pcp Primary Care Provider Unavailabl e Medications Current Medications MedicationDrug Class(es)DatesSig (Normalized)Sig (Original)acetaminophen 325 mg / HYDROcodone bitartrate 5 mg oral tablet (1 source)Opioid AgonistStart: 27-30-0950eqvr 1 tablet by mouth every six hours as neededHYDROcodone-acetaminophen (NORCO) 5-325 mg per tablet Take 1 tablet by mouth every 6 (six) hours asneeded. Max Daily Amount: 4 tablets 08/09/2023 ActivePRENATAL VIT,CALC76/IRON/FOLIC (PNV 29-1 ORAL) (1 source)take 1 tablet by mouth once dailyPRENATAL VIT,CALC76/IRON/FOLIC (PNV 29-1 ORAL) Take 1 tablet by mouth daily. Active Completed/Discontinued Medications MedicationDrug Class(es)DatesSig (Normalized)Sig (Original)apixaban 5 mg oral tablet (2 sources)Factor Xa InhibitorStart: 09-01-2023 End: 66-94-5650txlj 1 tablet by mouth in the morning, then take 1 tablet by mouth at bedtimeapixaban (ELIQUIS) 5 mg tablet Indications: Acute deep vein thrombosis (DVT) of left peroneal vein ([facility]) Take 1 tablet (5 mg total) by mouth in the morning and 1 tablet (5 mg total) before bedtime. 60 tablet 2 09/01/2023 09/01/2023 Discontinued Problems Active Problems Problem ClassificationProblemDateDocumented DateEpisodic/ChronicOther complications of ; puerperium affecting management of mother (1 source)Anemia complicating childbirth; Translations: [ANEMIA COMPLICATING CHILDBIRTH]Onset: 57-16-6900EcytzleWegiz nervous system disorders (3 sources)Paresthesia of skin; Translations: [PARESTHESIA OF SKIN]Onset: 31-90-3196UnxklddpAzfoirzkxjo; intervertebral disc disorders; other back problems (1 source)Cervicalgia; Translations: [CERVICALGIA]Onset: 07-90-4144Gwpoeobp Substance-related disorders (1 source)Nicotine dependence, cigarettes, uncomplicated; Translations: [NICOTINE DEPEND CIGARETTES UNCOMP]Onset: 00-23-2119CxcgfsrZtvrauviupgk (1 source)40 weeks gestation of ; Translations: [40 WEEKS GESTATION OF ]Onset: 00-96-4259Rgssswlzmdzh (1 source)Carpal tunnel syndrome, bilateral upper limbs; Translations: [CARPAL TUNNEL SYND SARAVANAN UPPER LIMBS]Onset: 80-49-4116Fprwvvjwyaxq (1 source)Acute embolism and thrombosis of left peroneal vein; Translations: [Acute embolism and thrombosis of left peroneal vein]Onset: 09-01-2023 Unclassified (1 source)Hospital Follow-upOnset: 09-01-2023 Past or Other Problems Problem ClassificationProblemDateDocumented DateEpisodic/ChronicContraceptive and procreative management (5 sources)Encounter for sterilization; Translations: [ENCOUNTER FOR STERILIZATION]Onset: 79-62-9132KqwgqdufSnyttomprguvh and screening for infectious disease (4 sources)Encounter for screening for infections with a predominantly sexual mode of transmission; Translations: [ENC SCREEN INFECTIONS SEXL TRANSMS]Onset: 80-10-7876ZxojaolqZmvofee examination/evaluation (4 sources)Encounter for other preprocedural examination; Translations: [ENCOUNTER OTHER PREPROCEDURAL EXAM]Onset: 55-76-5289ByomdeaiPsofvx and/or delivery (7 sources)Encounter for supervision of other normal , third trimester; Translations: [Encounter for supervision of normal , unspecified, third trimester]Onset: 78-84-2341FsremursKxykq complications of (4 sources)Supervision of with insufficient care, second trimester; Translations: [SUP PG INSUFF ANTENATL CARE 2ND TRI]Onset: 11-19-2016 EpisodicPhlebitis; thrombophlebitis and thromboembolism (2 sources)Acute embolism and thrombosis of left peroneal vein; Translations: [Acute venous embolism and thrombosis of deep vessels of distal lower extremity] Onset: 450920-70-3771WngshjkqEwrdbtgca (1 source)Post-term ; Translations: [POST-TERM ]Onset: 98-13-4328BenqyfshGcvspsyvvmtt (5 sources)Encounter for screening for malignant neoplasm of cervix; Translations: [Encounter for screening of mother]Onset: 12-13-2016 Episodic Results Test NameValueInterpretationReference RangeFacilityPAP RFX HPV IF ASCon 48-26-4046KUUKXOZNK:CommentAbSalem City HospitalComment on above:Result Comment: EPITHELIAL CELL ABNORMALITY.LOW-GRADE SQUAMOUS INTRAEPITHELIAL LESION (LGSIL); MILDDYSPLASIA ISPRESENT.FUNGAL ORGANISMS MORPHOLOGICALLY CONSISTENT WITH DAISY SPECIES AREPRESENT.Performed By: #### CBC ####[facility] Nszytblbpr4986 [address] KarenElectronically signed by:VíctorCleveland Clinic [facility] on above:Result Comment: Marcy Marin MD, PathologistPerformed By: #### CBC ####[facility] Suogptprpg6296 [address] KarenMethodology: CommentCleveland Clinic Akron General Lodi Hospital on above:Result Comment: This liquid based SurePath(R) pap test was screened with theassistance of an image guided system.Performed By: #### CBC ####[facility] [address]isx[address] [place] [address] KarenNote:CommentCleveland Clinic Children's Hospital for Rehabilitation Comment on above:Result Comment: The Pap smear is a screening test designed to aid in the detection ofpremalignant and malignant conditions of the uterine cervix. It is not adiagnostic procedure and should not be used as the sole means of detectingcervical cancer. Both false-positive and false-negative reports do occur. .Performed By: #### CBC ####[facility] [address] [place] [address] KarenPerformed by:VíctorCleveland Clinic Akron General [facility]odi Hospital on above:Result Comment: Olesya Sousa, Supervisor [employer] (ASCP) Performed By: #### CBC ####[facility] Tjblpcdvrg[address] [place] [address] KarenProteinCommentNoRegency Hospital Company Comment on above:Result Comment: R87.612, R87.5Performed By: #### CBC ####[facility] Oczrtkuftw4082 [address] KarenReflex Criteria:VíctorCleveland Clinic [facility] on above:Result Comment: The HPV DNA reflex criteria were not met with this specimen resulttherefore, no HPVtesting was performed. .Performed By: #### CBC ####[facility] [address]wnjdp[address]myr[address] [place] [address] KarenSpecimen adequacy:CommentNormalThe Holiday HospitalComment on above:Result Comment: Satisfactory for evaluation. Endocervical and/or squamous metaplasticcells (endocervical component) are present.Performed By: #### CBC ####[facility] Kkbuzhsvmy4188 [address] Amna..NormalThe Mansfield HospitalComment on above:Performed By: #### CBC ####[facility] Fhznauyzsv7625 [address] KarenCT C-SPINE WO CONon 43-16-7684HH C-SPINE WO [id number] [place] [address] Patient: ESPERANZA GARCIA Exam D ate: 08/20/2017DOB: 1990 Gender:F : CARITO ARZATE Admission #: [id number] : DR DENISE PINEDA . Order #: [id number] HERE TO VIEW EXAM RADIOLOGY REPORT PROCEDURE: [...] Ming Sousa M.D. on 08/20/2017 at 16:17 A pproved by: Mign Sousa M.D. on 08/20/2017 at 16:20[facility] PREG HCG QUALon 11-50-4037FWINKPRWD, QUALNegativeNormalNEGATIVEOhio State East HospitalComment on above:Performed By: #### CBC ####[facility] Xemntmcihy0164 [address] KarenPAP ACOG PANEL 2: 21 to 29on 28-98-6044Tru Gdln ACOG Ipxdwls26-30PuciqiPznCleveland Clinic Children's Hospital for Rehabilitation Comment on above:Performed By: #### CBC ####[facility] Lpwtqjhfzw1582 [address] KarenCOMMENTCoshocton Regional Medical Center on above:Result Comment: Z01.419Performed By: #### CBC ####[facility] Mrikhaecyh3407 [address] KarenDIAGNOSIS:CommentAbWooster Community Hospital on above:Result Comment: EPITHELIAL CELL ABNORMALITY.LOW-GRADE SQUAMOUS INTRAEPITHELIAL LESION (LGSIL); MILDDYSPLASIA ISPRESENT.Performed By: #### CBC ####[facility] Rtkcbzbtnf[address] [place] [address] KarenElectronically signed by:[facility] on above:Result Comment: Marcy Marin MD, PathologistPerformed By: #### CBC ####[facility] Yullyvhpef[address] [place] [address] KarenMethodology: CommentNoTrinity Health System on above:Result Comment: This liquid based SurePath(R) pap test was screened with theassistance of an image guided system.Performed By: #### CBC ####[address] KarenNote:[facility] Comment on above:Result Comment: The Pap smear is a screening test designed to aid in the detection ofpremalignant and malignant conditions of the uterine cervix. It is not adiagnostic procedure and should not be used as the sole means of detectingcervical cancer. Both false-positive and false-negative reports do occur. .Performed By: #### CBC ####[facility] [address] [place] [address] KarenPerformed by:[facility] on above:Result Comment: Haley Bettencourt, Supervisor [employer] ([employer])Performed By: #### CBC ####[facility] Nkkg[address]hf[address] [place], [place] [address]enProteinRegency Hospital [facility] East Comment on above:Result Comment: R87.612Performed By: #### CBC ####[facility] Bkcvleneby[address] [place] [address] KarenReflex Criteria:CommentCleveland Clinic [facility] on above:Result Comment: The HPV DNA reflex criteria were not met with this specimen resulttherefore, no HPV testing was performed. .Performed By: #### CBC ####[facility] Yaeazrzlwy[address] [place] [address] KarenSpecimen adequacy:CommentCleveland Clinic [facility] on above:Result Comment: Satisfactory for evaluation. Endocervical and/or squamous metaplasticcells (endocervical component) are present.Performed By: #### CBC ####[facility] R[address]wuklgrq[address] [place] [address] Amna..Normal The [facility]field HospitalComment on above:Performed By: #### CBC ####[facility] [address]wqfqpj[address] [place] [address] KarenCBC AUTO DIFFon 49-08-1548Xymurjyzq Auto #/vol (Bld)0.0 103/ulNormal0.0-0.1The [facility] HospitalComment on above:Performed By: #### CBC ####[facility] Gxswoxkl[address] [place] [address] KarenBasophils/100 WBC Auto (Bld)0.2 %Normal0.2-2.0The [facility] HospitalComforest health medical center on above:Performed By: #### CBC ####[facility] Hitynvbaxi[address] [place] [address] KarenEosinophils0.3 103/ulNormal0.0-0.7The [facility] on above:Performed By: #### CBC ####[facility] Yynwoijjhf[address] [place] [address] KarenEosinophils/100 leukocytes3.5 %Normal 0.9-7.0[facility] on above:Performed By: #### CBC ####[facility] [address]fwdpxi[address] [place] [id number] Amna Erythrocyte distribution width Auto Ratio (RBC)13.5 %Zsckfx62.0-15.0The [facility] HospitalComment on above:Performed By: #### CBC ####[facility] Xzercmrjgx[address] [place] [address] KarenErythrocytes (RBC)3.12 106/ulCritically low4.20-5.40The [facility] HospitalComment on above: Performed By: #### CBC ####[facility] Invpcucvbd[address] [place], [place] [address]Gerken KarenHematocrit (HCT)27.8 %Critically low 36.0-48.0The [facility] HospitalComment on above:Performed By: #### CBC ####[facility] Lzgassldih[address] [place] [address] KarenHemoglobin mass conc (Bld)8.9 g/dLCritically low12.0-16.0The [facility] HospitalComment on above:Performed By: #### CBC ####[facility] Vhdpptkkbx[address] [place], [place] [address]Gerken KarenIG #0.04 10e3/ul Critically high0.00-0.03The [facility] HospitalComforest health medical center on above:Performed By: #### CBC ####[facility] Bjqytmtyya[address] [place], [place] [address]Gerken KarenIG %0.5 %Normal0.0-0.5The [facility] HospitalComforest health medical center on above: Performed By: #### CBC ####[facility] Ivnnyzbgio[address] [place], [place] [address]Gerken KarenLymphocytes2.2 103/ulNormal1.2-3.8The [facility] HospitalComment on above:Performed By: #### CBC ####[facility] Ssezqukfkx[address] [place], [place] [address]Gerken KarenLymphocytes/100 vabcjeohgb77.4 %Lsyoii88.5-60.0The [facility] HospitalComment on above:Performed By: #### CBC ####[facility] Lpvplwauka3596 [address] KarenMANUAL DIFF REQNONormalThe [facility]field HospitalComment on above: Result Comment: NOPerformed By: #### CBC ####[facility] [address]sp[address]cfqsy[address] [place], [place] [address]H28.5 mqXaxjeu84.7-34.0The [facility] HospitalComment on above:Performed By: #### CBC ####[facility] Fnwanphein[address] [place], [place] [address]HC mass conc (RBC)32.0 g/rPFpncbd88.9-35.2The [facility] HospitalComment on above:Performed By: #### CBC ####[facility] Ilnlzsag[address] [place], [place] [address]MCV89.1 dBEibfgr53.0-99.0The [facility] HospitalComment on above: Performed By: #### CBC ####[facility] Codzccrhxj[address] [place] [address] KarenMonocytes0.7 103/ulNormal0.3-0.8The [facility] HospitalComment on above:Performed By: #### CBC ####[facility] Rfykkimyqr[address] [place] [address] KarenMonocytes/100 leukocytes8.5 %Normal1.7-12.0The [facility] HospitalComment on above:Performed By: #### CBC ####[facility] K[address]xbvxdan[address] [place] [address] KarenNeutrophils5.1 103/ulNormal1.4-6.5The [facility] HospitalComment on above:Performed By: #### CBC ####[facility] Ybwcnjwwhy[address] [place] [address] KarenNeutrophils/100 WBC Auto (Bld)60.9 %Normal 43.0-75.0The [facility] HospitalComment on above:Performed By: #### CBC ####[facility] Ylsqjfhrko[address] Main StreetBellevue, [place] [address]Mqmijb KarenPlatelet mean volume (PMV)10.0 fLNormal9.5-13.5The [facility] HospitalComment on above:Performed By: #### CBC ####[facility] Xpxjeldkiz[address] [place] [address] VcbmaNozdehjfp321 103/ulCritically zid714-789 The [facility] HospitalComment on above:Performed By: #### CBC ####[facility] Jwmusoovwc[address] [place] [address] KarenWBC (Leukocytes)8.3 103/ulNormal4.0-11.0The [facility] HospitalComment on above: Performed By: #### CBC ####[facility] [address]ukzjxcbe[address] [place] [address] KarenCBC AUTO DIFFon 52-71-2441Lcjislpdh Auto #/vol (Bld)0.0 103/ulNormal0.0-0.1The [facility] HospitalComforest health medical center on above: Performed By: #### CBC ####[facility] Kurdsubvfl[address] [place] [address] KarenBasophils/100 WBC Auto (Bld)0.3 %Normal 0.2-2.0The [facility] HospitalComforest health medical center on above:Performed By: #### CBC ####[facility] Vtountgkmm[address] [place] [address] Amna Eosinophils0.3 103/ulNormal0.0-0.7The [facility] HospitalComment on above: Performed By: #### CBC ####[facility] Azqeuurhep[address] [place] [address] KarenEosinophils/100 leukocytes3.3 %Normal 0.9-7.0The [facility] HospitalComment on above:Performed By: #### CBC ####[facility] Vzdfjjgvot[address] [place] [address] Amna Erythrocyte distribution width Auto Ratio (RBC)13.3 %Vridnx62.0-15.0The [facility] HospitalComment on above:Performed By: #### CBC ####[facility] L[address]swpbmuyr[address] [place] [id number] KarenErythrocytes (RBC)3.49 106/ulCritically low4.20-5.40The [facility] HospitalComforest health medical center on above: Performed By: #### CBC ####[facility] X[address]ox[address] [place] [address]Gerken KarenHematocrit (HCT)30.7 %Critically low 36.0-48.0The [facility] HospitalComment on above:Performed By: #### CBC ####[facility] Matpzdzrar[address] [place] [address] KarenHemoglobin mass conc (Bld)10.1 g/dLCritically low12.0-16.0The [facility] HospitalComforest health medical center on above:Performed By: #### CBC ####[facility] [address]qyjmcrb[address] [place], [place] [address]Gerken KarenIG #0.02 10e3/ul Normal0.00-0.03The [facility] HospitalComment on above:Performed By: #### CBC ####[facility] Centowqqnl[address] [place] [address] KarenIG %0.3 %Normal0.0-0.5[facility] on above:Performed By: #### CBC ####[facility] Funbucigpl[address] [place], [place] [address]Gerken KarenLymphocytes2.1 103/ulNormal1.2-3.8The [facility] HospitalComforest health medical center on above:Performed By: #### CBC ####[facility] Ycdwlfxbya[address] [place], [place] [address]Gerken KarenLymphocytes/100 pyijvvrkux73.8 %Normal 20.5-60.0[facility] on above:Performed By: #### CBC ####[facility] Atwmhtysqm[address] [place] [address] KarenMANUAL DIFF REQNONormalThe [facility] HospitalComforest health medical center on above:Result Comment: NOPerformed By: #### CBC ####[facility] Zcnnfpholc[address] [place], [place] [address]H28.9 ydKvwhom48.7-34.0The [facility] HospitalComment on above:Performed By: #### CBC ####[facility] Cwducnzeyk[address] [place], [place] [address]HC mass conc (RBC)32.9 g/nEAykzgr71.9-35.2The [facility] HospitalComment on above:Performed By: #### CBC ####[facility] Yxvtfugbbi[address] [place], [place] [address]V88.0 nNQolyyd91.0-99.0The [facility] HospitalComment on above: Performed By: #### CBC ####[facility] Enzjvhnsde[address] [place] [address] KarenMonocytes0.7 103/ulNormal0.3-0.8The [facility] HospitalComment on above:Performed By: #### CBC ####[facility] Ojjlwlseaf[address] [place] [address] KarenMonocytes/100 leukocytes8.9 %Normal1.7-12.0The [facility] HospitalComment on above:Performed By: #### CBC ####[facility] [address]qfamuvxwe[address] [place] [address] KarenNeutrophils4.9 103/ulNormal1.4-6.5The [facility] HospitalComment on above:Performed By: #### CBC ####[facility] Gmmxdjrkjv[address] [place] [address] KarenNeutrophils/100 WBC Auto (Bld)61.4 %Normal 43.0-75.0The [facility] HospitalComment on above:Performed By: #### CBC ####[facility] Oxmqkimmss[address] [place] [address] KarenPlatelet mean volume (PMV)10.3 fLNormal9.5-13.5The [facility] HospitalComment on above:Performed By: #### CBC ####[facility] B[address]qltta[address] [place], [place] [address]ken MpxmlTucqenkan759 103/mpNrgesd204-184Bgc Holiday HospitalComment on above:Performed By: #### CBC ####[facility] Ilqxynsfxp[address] [place] [address] KarenWBC (Leukocytes) 8.0 103/ulNormal4.0-11.0The Holiday HospitalComment on above:Performed By: #### CBC ####[facility] [address]qykwk[address] [place] [address] KarenDRUG SCRN UR RAPIDon 16-20-7011VOPXJDUVSMLTOgcrvpmnUeqhov NEGATIVEThe [facility] HospitalComment on above:Result Comment: NEGATIVEPerformed By: #### CBC ####[facility] [address]htwcxlc[address] [place] [address] KarenPCPNegativeNormalNEGATIVEThe [facility] HospitalComment on above: Result Comment: NEGATIVEPerformed By: #### CBC ####[facility] M[address]kmfbu[address] [place] [address] KarenTHCNegativeNormal NEGATIVEThe [facility] HospitalComment on above:Result Comment: NEGATIVEPerformed By: #### CBC ####[facility] Jpeezrzwmo[address] [place] [address] KarenTHRESH CONC 25THRESHOLD CONCENTRATION IS 25 ng/mL.NormalThe [facility] HospitalComment on above:Result Comment: THRESHOLD CONCENTRATION IS 25 ng/mL.Performed By: #### CBC ####[facility] [address]yptmfxh[address] [place] [address] KarenTHRESHOLD CONC 1000THRESHOLD CONCENTRATION IS 1000 ng/mL.NormalThe Holiday HospitalComment on above:Result Comment: THRESHOLD CONCENTRATION IS 1000 ng/mL.Performed By: #### CBC ####[facility] [address]ie[address]wkrkx[address] [place] [address] Amna THRESHOLD CONC 200THRESHOLD CONCENTRATION IS 200 ng/mL.NormalThe Holiday HospitalComment on above:Result Comment: THRESHOLD CONCENTRATION IS 200 ng/mL. Performed By: #### CBC ####[facility] Jrmubgujrx[address] [place] [address] KarenTHRESHOLD CONC 300THRESHOLD CONCENTRATION IS 300 ng/mL.NormalThe Holiday HospitalComment on above:Result Comment: THRESHOLD CONCENTRATION IS 300 ng/mL.Performed By: #### CBC ####[facility] [address]vxnhyppq[address] [place] [address] Amna THRESHOLD CONC 50THRESHOLD CONCENTRATION IS 50 ng/mL.NormalOhio State East Hospital Comment on above:Result Comment: THRESHOLD CONCENTRATION IS 50 ng/mL.Performed By: #### CBC ####[facility] [address]cwjyzd[address] [place] [address] KarenUrine, amphetamines presenceNegativeNormalNEGATIVESelect Medical Specialty Hospital [facility] Trumbull HospitalComment on above:Result Comment: NEGATIVEPerformed By: #### CBC ####[facility] Yanureuexc[address] [place] [address] KarenUrine, benzodiazepines presenceNegativeNormalNEGATIVEOhio State East Hospital Comment on above:Result Comment: NEGATIVEPerformed By: #### CBC ####[facility] Meftbfnwft[address] [place] [address] KarenUrine, cocaine presenceNegativeNormalNEGATIVEOhio State East HospitalComment on above: Result Comment: NEGATIVEPerformed By: #### CBC ####[facility] Ixqnuarsty[address] [place] [address] KarenUrine, methadone presenceNegativeNormalNEGATIVEOhio State East HospitalComment on above:Result Comment: NEGATIVEPerformed By: #### CBC ####[facility] Jzjmgkmoqs[address] [place] [address] KarenUrine, opiates presenceNegative NormalNEGATIVESelect Medical Specialty Hospital - [facility]umb[facility] HospitalComment on above:Result Comment: NEGATIVE Performed By: #### CBC ####[facility] [address]bllertx[address] [place] [address] KarenCHLAMYDIA AND GC AMPLIFon 12-17-2016 Chlamydia AmplifNegativeNormalThUniversity Hospitals [facility] HospitalComment on above:Result Comment: Test Performed By: [facility] [address] [place] [address] Language Assistant: Chantel Santiago MD, PhD Performed By: #### CBC ####[facility] Pmdagirtkf16[address] [place] [id number] KarenGC AmplificationNegativeCleveland Clinic Children's Hospital for RehabilitationComment on above:Performed By: #### CBC ####[facility] Csnrzgxowk[address] [place], [place] [address]Gerken KarenGC/Chlam Amp SourceVAGINALCleveland Clinic Children's Hospital for RehabilitationComment on above:Performed By: #### CBC ####[facility] Jyjdvxtoea[address] [place], [place] [address]Gerken KarenRPR/SERUMon 23-02-0091Htzcul antibody presenceNon ReactiveNormalNRThe [facility] HospitalComment on above:Result Comment: Test Performed By: [place] [address] Language Assistant: Chantel Santiago MD, PhDPerformed By: #### RPR ####[facility] [address]kuuupoya[address] [place] [address] KarenCBC AUTO DIFFon 89-54-9872Xdntptmji Auto #/vol (Bld)0.0 103/ulNormal0.0-0.1[facility] Comment on above:Performed By: #### CBC ####[facility] Pxzwqqmfhy[address] [place], [place] [address]Gerken KarenBasophils/100 WBC Auto (Bld)0.3 %Normal0.2-2.0The [facility] HospitalComment on above:Performed By: #### CBC ####[facility] Uidrnulkby[address] [place], [place] [address]Gerken KarenEosinophils0.2 103/ulNormal0.0-0.7The [facility] HospitalComforest health medical center on above: Performed By: #### CBC ####[facility] [address]fkcpc[address] [place], [place] [address]Gerken KarenEosinophils/100 leukocytes2.9 %Normal 0.9-7.0The [facility] HospitalComment on above:Performed By: #### CBC ####[facility] Ithhgeyxpp[address] [place] [address] Amna Erythrocyte distribution width Auto Ratio (RBC)12.7 %Ijjezh33.0-15.0The [facility] HospitalComment on above:Performed By: #### CBC ####[facility] [address]pffyezgw[address] [place] [address] KarenErythrocytes (RBC)3.44 106/ulCritically low4.20-5.40The Mansfield HospitalComment on above: Performed By: #### CBC ####[facility] [address] [place] [address] KarenHematocrit (HCT)31.2 %Critically low 36.0-48.0The Mansfield HospitalComment on above:Performed By: #### CBC ####[facility] [address] [place] [address] KarenHemoglobin mass conc (Bld)10.5 g/dLCritically low12.0-16.0The Mansfield HospitalComment on above:Performed By: #### CBC ####[facility] [address] [place], [place] [address]Gerken KarenIG #0.03 10e3/ul Normal0.00-0.03The Mansfield HospitalComment on above:Performed By: #### CBC ####[facility] [address] [place] [address] KarenIG %0.4 %Normal0.0-0.5The Mansfield HospitalComment on above:Performed By: #### CBC ####[facility] [address] [place] [address] KarenLymphocytes1.7 103/ulNormal1.2-3.8The Mansfield HospitalComment on above:Performed By: #### CBC ####[facility] [address] [place] [address] KarenLymphocytes/100 weluihsntg40.8 %Normal 20.5-60.0The [facility]field HospitalComment on above:Performed By: #### CBC ####[facility] [address]is[address] [place] [address] KarenMANUAL DIFF REQNONormalThe Holiday HospitalComment on above:Performed By: #### CBC ####[facility] [address] [place], [place] [address]H30.5 efEwhncz86.7-34.0The Holiday HospitalComment on above: Performed By: #### CBC ####[facility] Okbtf[address] [place], [place] [address]HC mass conc (RBC)33.7 g/dLNormal 29.9-35.2The Mansfield HospitalComment on above:Performed By: #### CBC ####[facility] [address] [place], [place] [address]V90.7 mBRoorgw33.0-99.0The [facility]field HospitalComment on above:Performed By: #### CBC ####[facility] [address] [place] [address] KarenMonocytes0.6 103/ulNormal0.3-0.8The [facility]field HospitalComment on above:Performed By: #### CBC ####[facility] [address] [place] [address] KarenMonocytes/100 leukocytes8.7 %Normal 1.7-12.0The Mansfield HospitalComment on above:Performed By: #### CBC ####[facility] Mr[address]xi[address] [place] [address] KarenNeutrophils4.7 103/ulNormal1.4-6.5The Mansfield HospitalComment on above: Performed By: #### CBC ####[facility] [address] [place] [address] KarenNeutrophils/100 WBC Auto (Bld)64.9 %Normal 43.0-75.0The Mansfield HospitalComment on above:Performed By: #### CBC ####[facility] [address] [place] [address] KarenPlatelet mean volume (PMV)9.1 fLCritically low9.5-13.5[facility] Comment on above:Performed By: #### CBC ####[facility] R[address] [place] [address] MartyYattjkanp474 103/klDvcksy994-846 The [facility]field HospitalComment on above:Performed By: #### CBC ####[facility] [address]on[address] [place] [address] KarenWBC (Leukocytes)7.3 103/ulNormal4.0-11.0The [facility]field HospitalComment on above: Performed By: #### CBC ####[facility] [address] [place] [address] KarenCULTURE URINEon 12-79-9439GJXMRXM URINE Culture Observations: Final, scanned result to follow in [facility] HospitalComment on above:Performed By: #### CXUR ####[facility] T[address] [place] [address] KarenGLYCOHEMOGLOBIN A1Con 18-58-0771Ftaedjd mass conc91 mg/dLNoRegency Hospital CompanyComment on above:Performed By: #### A1C ####[facility] [address] [place] [address] KarenHemoglobin A1c/Hemoglobin.total mass fraction (Bld)4.8 %Normal <=6.0The Mansfield HospitalComment on above:Performed By: #### A1C ####[facility] [address] [place] [address] KarenGROUP B STREPTon 42-44-3424QBFDjhupokzn by [facility], final report to followNormalNEG FOR GBSThe [facility] HospitalComforest health medical center on above:Performed By: #### CBC ####[facility] [address] [place] [address] KarenHEP B SURFACE AGon 41-67-8125LXJ B Surface AgNegativeNormalNEGATIVEThe Mansfield HospitalComment on above:Performed By: #### HBSAG2, HCV2 ####[facility] [address] [place], [place] [address]Gerken KarenHEP C ANTIBODYon 11-54-9604Krbs HCVNegativeNormalNEGATIVEOhio State East HospitalComment on above: Performed By: #### HBSAG2, HCV2 ####[facility] [address] [place], [place]Gerken KarenHIV 1 AND 2 ABon 30-67-3144TDV 1 AND 2 AB NegativeNormalNEGATIVEOhio State East HospitalComment on above:Performed By: #### HIV12 ####[facility] [address] [place] [address]Aiwlrb KarenRUBELLA AB IGGon 20-07-2580DGO HEADERSEE BELOWCleveland Clinic Children's Hospital for RehabilitationComment on above:Result Comment: or=15.0 IU/mL POSITIVE WHO considers levels >or= 10.0 IU/mL to be positive immune statusPerformed By: #### RUBG ####[facility] F[address] [place] [address] KarenRUB IGG67.0 IU/mLNormalOhio State East HospitalComment on above: Performed By: #### RUBG ####[facility] [address] [place] [address] KarenTYPE AND SCREENon 02-07-2753JBQF AND SCREENNegativeCleveland Clinic Children's Hospital for RehabilitationComment on above:Performed By: #### TNS ####[facility] [address] [place] [address] KarenUS PREG ANATOMY SINGLEon 06-05-5145AD PREG ANATOMY YEMAIH[address] [place] [address] Patient: ESPERANZA GARCIA Exam Date: 11/19/2016DOB: 1990 Gender:F : DR LINH FINE Admission #: [id number] : DR GOVIND ODONNELL . Order #: [id number] HERE TO VIEW EXAM RADIOLOGY REPORT PROCEDURE: ULTRASOUND > 14 WEEKS COMPARISON: None. INDICATIONS: Late care affecting O09.32; 33w0d TECHNIQUE: Transabdominal sonographic examination for obstetrical and evaluation. Transvaginal sonographic examination for obstetrical and evaluation.FINDINGS: FLUID / PLACENTA: Amniotic fluid volume: Subjectively normal. Placental location: Posterior. No previa. CervixLength: 4.1 cm, closed Heart Rate: 153 H.B./min Number: One ANATOMY: Normal structures: Cerebellum. Choroid plexus. Cisterna magna. Lateral cerebral ventricles. Orbits. Midline falx. Hardpalate. 4-chamber heart. RVOT. LVOT. Stomach. Kidneys. Bladder. Umbilical cord insertion into abdomen. 3 vessel cord. Cervical spine. Thoracic spine. Lumbar spine. Sacral spine. Right upper extremity. Left upper extremity. Right lower extremity. Left lower extremity. Suboptimally seen: Lateral cerebral ventricles. Abnormalities/Other: None. BIOMETRY: BPD: 7.64 cm 30 weeks, 5 days 3 % FL/AC: 22.94HC: 28.98 cm 31 weeks, 6 days 3.10 % FL/BPD: 80.34 AC: 26.77 cm 30 weeks, 6 days 5.10 % HC/AC: 1.08FL: 6.14 cm 31 weeks, 6 days 13.10 [...] growth detailed above.2. Estimated weight places the infant at the 6th percentile by EDC.3. Lack of visualization of the lateral cerebral ventricles. I suspect these are very thin due to age and increased brain size. Dictated by: Sami Laboy M.D. on 11/19/2016 at 20:49 Approved by: Sami Laboy M.D. on 11/19/2016 at 20:54[facility] Vital Signs Date TimeVital SignValuePerforming FzajeyxoiOscwitgh66-19-8395 14:59-0400Body ugsmdi036 cmMohamangel Jones MD Work Phone: [facility]05-09-2024 14:59-0400Body mass index (BMI) [Ratio]38.55 kg/y5OeqdgjkMikey Jones MD Work Phone: [phone]05-09-2024 14:59-0400Body zuyvwk13.7 kgMikey Jones MD Work Phone: [phone]05-09-2024 14:59-0400Diastolic blood ibqmrwme77 mm[Hg]Mikey Jones MD Work Phone: [phone]05-09-2024 14:59-0400Heart rate 72 /minMikey Jones MD Work Phone: [phone]05-09-2024 14:59-0400Systolic blood mwnoatzb904 mm[Hg]Mikey Jones MD Work Phone: [phone] Encounters Encounter DateEncounter TypeCare ProviderFacilityStart: 09-01-2023 End: 59-48-4914llvzklisqvBCCRNKTHarlem [facility] Hospital Ambulatory PPGStart: 09-01-2023 End: 04-20-5005Ncdwpm outpatient new 30 minutesMoetienne Jones MD Work Phone: [facility] Comment on above:Acute deep vein thrombosis (DVT) of left peroneal vein (CMS- HCC) (Primary Dx)Start: 11-09-2017 End: 21-59-8556Dgcvqsk encounterGREGORY KARASIKFacility:Z1Zvayi: 08-20-2017 End: 48-14-7120Uuqjypn encounterNONE LISTED REQUESTFacility:E1Berlj: 07-04-2017 End: 70-44-6887Uhhrkkq encounterGREGORY KARASIKFacility:J9Hsmhk: 06-29-2017 End: 39-82-2710Xrcyjfx encounterGREGORY KARASIKFacility:T2Dlhxj: 05-27-2017 End: 50-96-3160Slbfdzr encounterGREGORY KARASIKFacility:L5Jfagm: 01-13-2017 End: 48-77-6014Vmezncotto and management of inpatientGREGORY KARASIKFacility:H1 Start: 12-15-2016 End: 78-53-6906Lrjqaco encounterGREGPREMA ODONNELLFacility:I8Gfpqk: 12-08-2016 End: 24-08-2778Mgaqpjf encounterGREGORY BELLEFacility:S7Dyuft: 11-19-2016 End: 65-75-3304Gtroobc encounterGREGPREMA ODONNELLFacility:H1 Procedures DateProcedureProcedure DetailPerforming ClinicianStart: 10-82-5027Wrxtyily of Products of Conception, External ApproachGREGPREMA KARASIKStart: 01-13-2017 Drainage of Amniotic Fluid, Therapeutic from Products of Conception, Via Natural or Artificial OpeningCOVINGTON COUNTY HOSPITALPREMA ODONNELL Plan of Treatment DateCare ActivityDetailAuthorStart: 06-66-5328Wnuogyafr vaccinationInfluenza VaccineAvita [facility] SystemStart: 12-15-2023 End: 93-83-4530Cpfwpcy encounter juilbzxau91/22/2024 11:30 AM EDT Office Visit [facility] [place] [address] Mikey Jones MD [address], [address] [address] [facility] Wound CareStart: 00-76-3940Jnhrkwniz for malignant neoplasm of cervixPap SmearAvita Health System Ontario Hospital SystemStart: 01-29-8562APkV,Tdap and Td Vaccines (1 - Tdap)DTaP,Tdap and Td Vaccines (1 - Tdap)[facility] SystemStart: 12-70-4977Obdkv BMI Follow Up PlanAdult BMI Follow Up PlanAvita Health System Ontario Hospital SystemStart: 50-77-9892Bjjdw BMI ScreeningAdult BMI ScreeningAvita Health System Ontario Hospital SystemStart: 97-28-8368Fxnmtsbphf ScreeningDepression ScreeningAvita Health System [facility] Hospital SystemStart: 76-19-6319Sttdxey ScreeningTobacco ScreeningAvita Health System [facility] System Payers DatePayer CategoryPayerPolicy [id number] Social History DateTypeDetailFacilityStart: 70-26-2552Gcecaci smoking status NHISSmokes tobacco dailyAvita Health System [facility] Hospital SystemStart: 44-52-1299Udzfjxsol beverage intakeCurrent non-drinker of alcohol (finding)[facility] SystemStart: 06-05-2020 End: 96-39-9734Gzdeekfyt beverage intakeAvita Health System Ontario Hospital SystemStart: 06-05-2020 End: 48-51-8830Rmvbbbb use panelBarney Children's Medical CenterChildcareUnknoSteven Community Medical Center SystemStart: 62-80-9523Kyh assigned at birthNot on fileBarney Children's Medical Center Evaluation + Plan note 09-01-2023 Note Date & AgbaGucjKoqrhths94-11-5499 Evaluation + Plan note* Assessment & Plan Note - Mikey Jones MD - 09/01/2023 2:55 PM EDTAssociated Problem(s): Acute deep vein thrombosis (DVT) of left peroneal vein ([facility]) Continue anticoagulation for total of 3 months after resolution of the mobility resulted from this fracture. [facility] Note 09-01-2023 Note Date & VxskVvhmAlogzwvs48-78-7632 Miscellaneous Notes* Assessment & Plan Note - Mikey Jones MD - 09/01/2023 2:55 PM EDTAssociated Problem(s): Acute deep vein thrombosis (DVT) of left peroneal vein ([facility]) Continue anticoagulation for total of 3 months after resolution of the mobility resulted from this fracture. * Addendum Note - Martha Monzon CMA - 09/01/2023 2:40 PM EDTAddended by: MARTHA MONZON on: 09/01/2023 03:01 PM Modules accepted: Orders * Addendum Note - Martha Monzon CMA - 09/01/2023 2:40 PM EDTAddended by: MARTHA MONZON on: 09/01/2023 03:04 PM Modules accepted: Orders documented in this encounterAvita Health System Ontario Hospital System History of Present illness Narrative 09-01-2023 Note Date & FfysRmkbSsyyiucu26-73-7232 History of Present illness Narrative* Mikey Jones MD - 09/01/2023 2:40 PM EDT Images from the original note were not included. To: NO PCP, NO PCP HPI: Esperanza Garcia is a 33 y.o. female with Left lower extremity DVT below the knee this was discoveredon ultrasound done for leg swelling and pain. She Is a leg fracture as precipitating factor. She lane Eliquis. Review of Systems: Review of Systems Constitutional: Negative. HENT: Negative. Respiratory: Negative. Cardiovascular: Negative. Gastrointestinal: Negative. Endocrine: Negative. Genitourinary: Negative. Musculoskeletal: Negative. Skin: Negative. Neurological: Negative. Hematological: Negative. Medications: Current Outpatient Medications on File Prior to Visit Medication Sig Dispense Refill VIT,CALC76/IRON/FOLIC (PNV 29-1 ORAL) Take 1 tablet by mouth daily. No current facility-administered medications on file prior to visit. Past Medical History: No past medical history on file. Past Surgical History: No past surgical history on file. Social and Family History: Social History Socioeconomic History Marital status: Single Spouse name: Not on file Number of children: Not on file Years of education: Not on file Highest education level: Not on file Occupational History Not on file Tobacco Use Smoking status: Every Day Smokeless tobacco: Not on file Substance and Sexual Activity Alcohol use: No Alcohol/week: 0.0 standard drinks of alcohol Drug use: No Sexual activity: Not on file Other Topics Concern Not on file Social History Narrative Not on file Social Determinants of Health Financial Resource Strain: Not on file Food Insecurity: Not on file Transportation Needs: Not on file Physical Activity: Not on file Stress: Not on file Social Connections: Not on file Interpersonal Safety: Not on file Housing Instability: Not on file Family History Problem Relation Age of Onset Asthma Father Diabetes Maternal Grandmother Hypertension Maternal Grandmother Recent Labs: Recent and relative labs were reviewed and interpreted and contributed to the assessment and plan below. Vitals: There were no vitals taken for this visit. There is no height or weight on file to calculate BMI. Physical Exam: Physical Exam Constitutional: Appearance: Normal appearance. HENT: Head: Normocephalic and atraumatic. Mouth/Throat: Mouth: Mucous membranes are moist. Eyes: Extraocular Movements: Extraocular movements intact. Pupils: Pupils are equal, round, and reactive to light. Cardiovascular: Rate and Rhythm: Normal rate and regular rhythm. Pulmonary: Effort: Pulmonary effort is normal. Breath sounds: Normal breath sounds. Abdominal: General: Abdomen is flat. Bowel sounds are normal. Palpations: Abdomen is soft. Musculoskeletal: General: Normal range of motion. Cervical back: Normal range of motion. Skin: General: Skin is warm and dry. Neurological: General: No focal deficit present. Mental Status: She is alert and oriented to person, place, and time. Mental status is at baseline. Psychiatric: Mood and Affect: Mood normal. Behavior: Behavior normal. Thought Content: Thought content normal. Judgment: Judgment normal. Recent testing: Assessment and Plan: Problem List Acute deep vein thrombosis (DVT) of left peroneal vein (CMS-HCC) - Primary Current Assessment & Plan Continue anticoagulation for total of 3 months after resolution of the mobility resulted from this fracture. Diagnoses and all orders for this visit: Acute deep vein thrombosis (DVT) of left peroneal vein (CMS-HCC) Mikey Jones MD, LUCRETIA, RPVI, FSVS, FACS [facility] This note was created with the assistance of a speech recognition program. While intending to generate a timely document that accurately reflects the content of the visit, no guarantee can be provided that every grammatical or spelling mistake has been or will be identified or corrected. Thank you for your understanding. documented in this encounterBarney [facility] Clinical Note 09-01-2023 Note Date & YddoNhflYhfpstyf95-96-5098 Note* Addendum Note - Martha Monzon [facility] - 09/01/2023 2:40 PM EDTAddended by: MARTHA MONZON on: 09/01/2023 03:01 PM Modules accepted: Orders [facility] Clinical Note 09-01-2023 Note Date & RhopPegcQumbcocb34-31-3801 Note* Addendum Note - Martha Monzon CMA - 09/01/2023 2:40 PM EDTAddended by: MARTHA MONZON on: 09/01/2023 03:04 PM Modules accepted: Orders [facility] Evaluation note Note Date & TypeNoteFacilityEvaluation note* Diagnosis Acute deep vein thrombosis (DVT) of left peroneal vein ([facility]-HCC)- Primary documented in this encounter [facility] Instructions Note Date & TypeNoteFacilityInstructionsNot on filedocumented in this encounter [facility] Summary Purpose Family History No Family History Records FoundNo Family History Records Found Advance Directives No Advanced Directives Records FoundNo Advanced Directives Records Found Additional Source Comments INFORMATION SOURCE (unrecogn ized section and content) DATE CREATED AUTHOR 11/17/2017 [facility] DATE CREATED AUTHOR AUTHOR'S ORGANIZ ATION 09/03/2023 [facility] Reason for Visit (unrecogniz ed section and content) ReasonCommentsHospital Follow-up Care Teams (unrecognized sec tion and content) Team MemberRelationshipSpecialtyStart DateEnd Date No P[place], [place] [address] [facility] - [facility] FOR RECORDS PERTAINING TO PATIENTS WHO ARE [...] BE BASED ON THE PRIMARY CLINICAL RECORDS. [facility] [employer] [facility]. provides no warranty or guarantee of the accuracy or completeness of information in this document.
--- OUTSIDE RECORDS SUMMARY | 2025-03-01 01:43 | XMS_ITS | Clinical Summary ---
Author Organization [facility] tem Address [id number] [address] [place] [address] Care Team Providers Care Behavioral Health Consultant Name Role Phone No Pcp, No Pcp Primary Care Provider Unavailabl e Allergies No known active allergies Medications MedicationSigDispense QuantityRefillsLast FilledStart DateEnd DateStatus VIT,CALC76/IRON/FOLIC (PNV 29-1 ORAL) Take 1 tablet by mouth daily.Active HYDROcodone-acetaminophen (NORCO) 5-325 mg per tablet Take 1 tablet by mouth every 6 (six) hours as needed. Max Daily Amount: 4 /16/2024Active apixaban (ELIQUIS) 5 mg tablet Indications:Acute deep vein thrombosis (DVT) of left peroneal vein ([facility])Take 1 tablet (5 mg total) by mouth in the morning and 1 tablet (5 mg total) before bedtime. 60 tablet 4Active Active Problems ProblemNoted DateDiagnosed DateAcute deep vein thrombosis (DVT) of left peroneal vein09/01/2023 Assessment & Plan (09/01/2023 2:55 PM EDT): Continue anticoagulation for total of 3 months after resolution of the mobility resulted from this fracture. Family History Medical HistoryRelationNameCommentsAsthmaFatherDiabetesMaternal Grandmother HypertensionMaternal GrandmotherRelationNameStatusCommentsFatherMaternal Grandmother Social History Tobacco UseTypesPacks/DayYears UsedDateSmoking Tobacco: Every DayAlcohol Use Standard Drinks/WeekCommentsNo0 (1 standard drink = 0.6 oz pure alcohol) ChildcareAnswerDate FflzkxwzKhjwvdhzkZnjstni39/13/2019EmploymentAnswerDate FzigbgvnNodfhtksbhIbzyppq40/13/2019Purpose - LifeAnswerDate RecordedPurpose and direction in ixuiFgkjkzh96/11/2021CommentsNoSex and Gender Information ValueDate RecordedSex Assigned at BirthNot on fileLegal QedJzrwwi07/02/2017 1:25 PM EDTGender IdentityNot on fileSexual OrientationNot on file Last Filed Vital Signs Vital SignReadingTime TakenCommentsBlood Sinpkpok078/78009/01/2023 2:59 PM EDT Pkgro1399/09/2024 2:59 PM EDTTemperature--Respiratory Rate--Oxygen Saturation-- Inhaled Oxygen Concentration--Kouodq37.7 kg (217 lb 9.6 oz)09/01/2023 2:59 PM TDLDryzeg353 cm (5' 3 )09/01/2023 2:59 PM EDTBody Mass Index38.55009/01/2023 2:59 PM EDT Plan of Treatment Health MaintenanceDue DateLast DoneCommentsDepression Nxggktidx53/10/2005 DTaP,Tdap and Td Vaccines (1 - Tdap)2011Pap Smear2013dult BMI Acrmktped11Tobacco Nkbvfqfqn38Influenza Tkwmeix4512/24/2024 Medical Devices Not on file Insurance Care Teams Team MemberRelationshipSpecialtyStart DateEnd Date No Pcp, [place] [address] [facility] - [facility]
[2025-03-01] MEDS: KETOROLAC TROMETHAMINE 60 MG/2 ML VIAL IM (01:52)
== END 2025-03-01 02:00 | disposition home or self-care (01) ==
PROVIDERS: Emergency Provider Emergency Medicine
DX: G56.03 Carpal tunnel syndrome, bilateral upper limbs (principal); M25.531 Pain in right wrist; M25.532 Pain in left wrist; Z86.718 Personal history of other venous thrombosis and embolism
CPT/HCPCS: 96372; 99284; J1885